=== PATIENT | male | born 1950 | race Caucasian/White ===

== ENCOUNTER 2022-11-08 15:39 | Emergency (ER) | payer OTHER, BC ==
--- OUTSIDE RECORDS SUMMARY | 2022-11-08 15:43 | XMS REPORT | Continuity of Care Document ---
:1950 Author Organization [facility] t Address [address] [place] [address] [place] [id number] Care Team Providers Name Role Phone [facility] Primary Care Physician JORGE YOU Attending Clinician Unavailable [email or web address] Attending Clinician Unavailable Sallie Hickman APRN Attending Clinician Braulio Borrego Attending Clinician [phone] Doctor Unassigned, [place] Attending Clinician Unavailable Jorge You MD Attending Clinician Only, Ad[facility] Test Attending Clinician Unavailable Pob, [facility] Main Attending Clinician Unavailable Osmani Willis DO Attending Clinician Agustin Webb MD Attending Clinician JORGE YOU Admitting Clinician Unavailable [email or web address] Admitting Clinician Unavailable Jorge You MD Admitting Clinician Payers Payer Name Policy Type Policy Number Effective Date Expiration Date S edel MEDICARE PART A [id number] 2014 AND B 00:00:00 MEDICARE PART A [id number] 2014 \T\ B 00:00:00 [place] [id number] 2014 (MEDICARE) 00:00:00 [place] [id number] [place] [id number] 2014 [employer] 00:00:00 Problems Condition Condition Condition Status Onset Resolution Last Treating Co mments Source Name Details Category Date Date Treatment Clinician Date Anxiety Anxiety Problem Active [facility] 3-27 Medical 00:00: 00 Unsteady Unsteady Problem Active 2021-05 [facility] when When 2-29 Medical walking Walking 00:00: 00 Erectile Erectile Problem Active 2021-05 [facility] dysfunctio Dysfunctio 1-22 Me dical n n 00:00: 00 Thrombocyt Thrombocyt Problem Active [facility] openic openic 1-17 Medical disorder Disorder 00:00: 00 Chronic Chronic Problem Active [facility] alcoholism Alcoholism 1-17 Me dical in in 00:00: remission Remission 00 Seborrheic Seborrheic Problem Active [facility] dermatitis Dermatitis 1-16 Me dical of scalp of Scalp 00:00: 00 Memory Memory Problem Active [facility] impairment Impairment 1-16 Me dical 00:00: 00 Dementia Dementia Problem Active [facility] 1-14 Medical 00:00: 00 Attention Attention Disease Active 2019-05 and and 06-10 Health concentrat concentrat 00:00: ion ion 00 deficit deficit Decreased Decreased Disease Active 2019-05 [facility] platelet platelet 06-10 Health count count 00:00: 00 Essential Essential Disease Active 2019-05 [facility] (primary) (primary) 06-10 Heal th hypertensi hypertensi 00:00: on on 00 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 [facility] T ysteinemia ysteinemia 19 He alth 00:00: 00 Increased Increased Disease Active 2019-05 [facility] CPK level CPK level 19 Heal th 00:00: 00 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' 19 He alth s disease s disease 00:00: without without 00 behavioral behavioral disturbanc disturbanc e e Low Low Disease Active 2019-05 [facility] vitamin vitamin 06-10 Health B12 level B12 level 00:00: 00 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 [facility] vessel vessel -19 Health disease, disease, 00:00: cerebrovas cerebrovas 00 cular cular Atrial Atrial Disease Active [facility] fibrillati fibrillati 9 He alth on on 00:00: 00 Essential Essential Problem Active 2019-1 [facility] hypertensi Hypertensi 2-18 Me dical on on 00:00: 00 Paroxysmal Paroxysmal Problem Active 2018- P [facility] atrial Atrial 2-18 Medical fibrillati Fibrillati 00:00: on on 00 Male Male Problem Active [facility] hypogonadi Hypogonadi 6-14 Me dical sm sm 00:00: 00 Allergies, Adverse Reactions, Alerts Allergy Allergy Status Severity Reaction(s) Onset Inactive Treating Comm ents Source Name Type Date Date Clinician NO KNOWN Drug Active [facility] ALLERGIE Class [facility] Social History Social Habit Start Date Stop Date Quantity Comments Source Exposure to 2022-05-29 2022-06-08 Not sure [facility] SARS-CoV-2 00:00:00 13:07:00 (event) Tobacco use and 2022-06-08 2022-06-08 Smokeless tobacco [facility] exposure 00:00:00 00:00:00 non-user Alcohol intake 2017-07-27 2017-07-[address] [facility] 00:[facility]:00 00:00:00 non-drinker of Medical Ce nter alcohol (finding) Sex Assigned At [address] [facility] Smoking Status Start Date Stop Date Source Tobacco smoking consumption unknown [facility] Never smoked tobacco [facility] Medications Ordered Filled Start Stop Current Ordering Indication Dosage Frequency Signature Comments Components Source Medication Medication Date Date Medication? Clinician (SIG) Name Name donepezil 4- No [id number] 10mg Take 1 [facility] T (Aricept) 06-08 tablet (10 Hea lth 10 MG 00:00: 05:59 mg total) tablet 00 :00 by mouth 1 (one) time each day in the morning. escitalopra 4- No [id number] 10mg QD Take 1 [facility] m (Lexapro) 06-08 tablet (10 H ealth 10 MG 00:00: 05:59 mg total) tablet 00 :00 by mouth 1 (one) time each day. Take 1 tablet, 10 mg, daily after taking 5 mg tablets for 14 days. donepezil Yes 10mg QD Take 10 mg [facility] (Aricept) 05-29 by mouth 1 Heal th 10 MG 00:00: (one) time tablet 00 each day. memantine 2022-0 Yes 5mg QD Take 5 mg [facility] (Namenda) 5 05-29 by mouth 1 He alth MG tablet 00:00: (one) time 00 each day. memantine 2022-0 Yes 5mg QD Take 5 mg [facility] (Namenda) 5 05-29 by mouth 1 He alth MG tablet 00:00: (one) time 00 each day. donepezil 2022-2022- No 10mg QD Take 10 mg U T (Aricept) 05-29 by mouth 1 Hea lth 10 MG 00:00: 00:00 (one) time tablet 00 :00 each day. escitalopra 2021-0 Yes [id number] 5mg QD Take 1 [facility] m (Lexapro) 4-11 tablet (5 Hea lth 5 MG tablet 00:00: mg total) 00 by mouth 1 (one) time each day for 14 days. Take 1 tablet for 14 days then increase to 10 mg tablet once daily escitalopra 2021-0 Yes [id number] 5mg QD Take 1 [facility] m (Lexapro) 4-11 tablet (5 Hea lth 5 MG tablet 00:00: mg total) 00 by mouth 1 (one) time each day for 14 days. Take 1 tablet for 14 days then increase to 10 mg tablet once daily escitalopra 2021-0 2022- No [id number] 10mg QD Take 1 [facility] m (Lexapro) 08-31-12 tablet (10 H ealth 10 MG 00:00: 04:59 mg total) tablet 00 :00 by mouth 1 (one) time each day. Take 1 tablet, 10 mg, daily after taking 5 mg tablets for 14 days. escitalopra 2021-0 2022- No [id number] 10mg QD Take 1 [facility] m (Lexapro) 08-31 tablet (10 H ealth 10 MG 00:00: 00:00 mg total) tablet 00 :00 by mouth 1 (one) time each day. Take 1 tablet, 10 mg, daily after taking 5 mg tablets for 14 days. water for Yes PRN, Univers irrigation 08-06 Starting ity o f irrigation 15:41: Wed [place] solution 00 08/06/20 at [facility] 1041, Branch Until Discontinu ed, Routine, Intra-op sodium 0 Yes PRN, Univers chloride 17 Starting ity of (NS) 15:41: Tue [place] injection 00 08/06/20 at [facility] 1041, Branch Until Discontinu ed, Routine, Intra-op neomycin-po 0 Yes PRN, Univer s lymyxin-dex 17 Starting ity of amethasone 15:40: Tue (MAXITROL) 08/06/20 at [facility] ical 3.5 1040, Branch mg/g-10,000 Until unit/g-0.1 Discontinu % ed, ophthalmic Routine, ointment Intra-op Hyaluronida Yes PRN, Univer s se, Human 08-06 Starting ity of Recomb. 15:40: Tue (HYLENEX) 08/06/20 at [facility] 1040, Branch Until Discontinu ed, Routine, Intra-op gentamicin Yes PRN, Univers injection 17 Starting ity of 15:40: Tue [place] 00 08/06/20 at [facility] 1040, Branch Until Discontinu ed, NGOZI, Intra-op eye block Yes PRN, Univers syringe 11 17 Starting ity o f mL 15:40: Tue [place] 08/06/20 at [facility] 1040, Branch Until Discontinu ed, Intra-op EPINEPHrine Yes PRN, Univer s 1:1,000 (1 17 Starting ity o f mg/mL) 15:39: Tue (ADRENALIN) 00 08/06/20 at [place] [facility] injection 1039, Branch Until Discontinu ed, Routine, Intra-op DUOVISC 0 Yes PRN, Univers (DUOVISC 17 Starting ity of VISCO 15:39: Tue ELASTIC) 3 08/06/20 at [facility] ical %-4 %(0.5 1039, Branch mL) 1 % Until (0.55 mL) Discontinu intraocular ed, injection Routine, Intra-op dexamethaso Yes PRN, Univer s ne 3-17 Starting ity of (DECADRON 15:38: Tue PHOSPHATE) 00 08/06/20 at [facility] ical injection 1038, Branch Until Discontinu ed, Routine, Intra-op ceFAZolin Yes PRN, Univers (ANCEF) 317 Starting ity of injection 15:38: Wed [place] 00 08/06/20 at [facility] 1038, [place] Until Discontinu ed, NGOZI, Intra-op carbachoL Yes PRN, Univers (MIOSTAT) 08-06 Starting ity of 0.01 % 15:38: Wed [place] intraocular 00 08/06/20 at [place] dical injection 1038, [place] Until Discontinu ed, Routine, Intra-op balanced Yes PRN, Univers salt irrig 08-06 Starting ity o f soln comb1 15:32: Tue [place] (BSS PLUS) 00 08/06/20 at [facility] ophthalmic 1032, [place] solution Until 500 mL bag Discontinu ed, Routine, Intra-op mydriatic 2020- No .5mL 0.5 mL, Univ ers #5 08-06 Right Eye, ity of ophthalmic 14:15: 14:23 ONCE, 1 [place] as solution 00 :00 dose, Tue Medica l 0.5 mL 08/06/20 at [place] syringe 0915, Routine, DSU Pre-op lactated 2020- No 1000mL at 42 Univ rs ringers IV 08-0617 mL/hr, ity of infusion 14:15: 14:21 1,000 mL, [place] as 1,000 mL 00 :00 IV Medical Infusion, [place] ONCE, 1 dose, 08/06/20 at 0915, Routine, DSU Pre-op cefazolin 1 cefazolin 1 No cefazolin [facility] gram gram 17 1 gram Medical intravenous intravenous 00:00: intravenou piggyback piggyback 00 s piggyback dexamethaso dexamethaso No dexamethas [facility] ne sodium ne sodium 17 one sodium Medical phosphate 4 phosphate 4 00:00: phosphate mg/mL mg/mL 00 4 mg/mL injection injection injection solution solution solution epinephrine epinephrine No epinephrin [facility] 1 mg/mL 1 mg/mL 08-06 e 1 mg/mL Medi frantz injection injection 00:00: injection kit kit 00 kit gentamicin gentamicin No gentamicin [facility] 40 mg/mL 40 mg/mL 3-17 40 mg/mL Med ical injection injection 00:00: injection solution solution 00 solution hyaluronida hyaluronida No hyaluronid [facility] se, human se, human 3-17 ase, human Medical recombinant recombinant 00:00: recombinan 150 unit/mL 150 unit/mL 00 t 150 injection injection unit/mL solution solution injection solution neomycin neomycin No neomycin [facility] 3.5 3.5 3-17 3.5 Medical mg/g-polymy mg/g-polymy 00:00: mg/g-polym xochitl B xochitl B 00 yxin B 10,000 10,000 10,000 unit/g-dexa unit/g-dexa unit/g-dex meth 0.1 % meth 0.1 % ameth 0.1 eye oint eye oint % eye oint water for water for No water for [facility] irrigation, irrigation, 3-17 irrigation Medical sterile sterile 00:00: , sterile solution solution 00 solution carbachol carbachol No carbachol [facility] 0.01 % 0.01 % 17 0.01 % Medical intraocular intraocular 00:00: intraocula solution solution 00 r solution DIGOXIN 125 2020-0 Yes [id number] TAKE ONE Univers mcg (0.125 4-15 TABLET BY ity of mg) tablet 00:00: [facility] DAILY Medical Branch DIGOXIN 125 2020-0 Yes [id number] TAKE ONE Univers mcg (0.125 4-15 TABLET BY ity of mg) tablet 00:00: [facility] DAILY Medical Branch DIGOXIN 125 2020-0 Yes [id number] TAKE ONE Univers mcg (0.125 4-15 TABLET BY ity of mg) tablet 00:00: [facility] DAILY Medical Branch DIGOXIN 125 2020-0 Yes [id number] TAKE ONE Univers mcg (0.125 4-15 TABLET BY ity of mg) tablet 00:00: [facility] DAILY Medical Branch DIGOXIN 125 2020-0 Yes [id number] TAKE ONE Univers mcg (0.125 4-15 TABLET BY ity of mg) tablet 00:00: [facility] DAILY Medical Branch DIGOXIN 125 2020-0 Yes [id number] TAKE ONE Univers mcg (0.125 4-15 TABLET BY ity of mg) tablet 00:00: [facility] DAILY Medical Branch DIGOXIN 125 2020-0 Yes [id number] TAKE ONE Univers mcg (0.125 4-15 TABLET BY ity of mg) tablet 00:00: [facility] DAILY Medical Branch DIGOXIN 125 2020-0 Yes [id number] TAKE ONE Univers mcg (0.125 4-15 TABLET BY ity of mg) tablet 00:00: [facility] DAILY Medical Branch DIGOXIN 125 2020-0 Yes [id number] TAKE ONE Univers mcg (0.125 4-15 TABLET BY ity of mg) tablet 00:00: [facility] DAILY Medical Branch DIGOXIN 125 2020-0 Yes [id number] TAKE ONE Univers mcg (0.125 4-15 TABLET BY ity of mg) tablet 00:00: [facility] DAILY Medical Branch TRIAMTERENE 2020-0 Yes TAKE ONE Un franko -HYDROCHLOR 3-30 CAPSULE BY it y of OTHIAZIDE 00:00: [facility] 37.5-25 mg 00 DAILY Medical per capsule Branch QUINAPRIL 2020-0 Yes TAKE ONE Univ ers 20 mg 3-30 TABLET BY ity of tablet 00:00: [facility] DAILY Medical Branch TRIAMTERENE 2020-0 Yes TAKE ONE Un franko -HYDROCHLOR 3-30 CAPSULE BY it y of OTHIAZIDE 00:00: [facility] 37.5-25 mg 00 DAILY Medical per capsule Branch QUINAPRIL 2020-0 Yes TAKE ONE Univ ers 20 mg 3-30 TABLET BY ity of tablet 00:00: [facility] DAILY Medical Branch TRIAMTERENE 2020-0 Yes TAKE ONE Un franko -HYDROCHLOR 3-30 CAPSULE BY it y of OTHIAZIDE 00:00: [facility] 37.5-25 mg 00 DAILY Medical per capsule Branch QUINAPRIL 2020-0 Yes TAKE ONE Univ ers 20 mg 3-30 TABLET BY ity of tablet 00:00: [facility] DAILY Medical Branch TRIAMTERENE 2020-0 Yes TAKE ONE Un franko -HYDROCHLOR 3-30 CAPSULE BY it y of OTHIAZIDE 00:00: [facility] 37.5-25 mg 00 DAILY Medical per capsule Branch QUINAPRIL 2020-0 Yes TAKE ONE Univ ers 20 mg 3-30 TABLET BY ity of tablet 00:00: [facility] DAILY Medical Branch TRIAMTERENE 2020-0 Yes TAKE ONE Un franko -HYDROCHLOR 3-30 CAPSULE BY it y of OTHIAZIDE 00:00: [facility] 37.5-25 mg 00 DAILY Medical per capsule Branch QUINAPRIL 2020-0 Yes TAKE ONE Univ ers 20 mg 3-30 TABLET BY ity of tablet 00:00: [facility] 00 DAILY Medical Branch TRIAMTERENE 2020-0 Yes TAKE ONE Un franko -HYDROCHLOR 3-30 CAPSULE BY it y of OTHIAZIDE 00:00: MOUTH [place] 37.5-25 mg 00 DAILY Medical per capsule Branch QUINAPRIL 2020-0 Yes TAKE ONE Univ ers 20 mg 3-30 TABLET BY ity of tablet 00:00: MOUTH 00 DAILY Medical Branch TRIAMTERENE 2020-0 Yes TAKE ONE Un franko -HYDROCHLOR 3-30 CAPSULE BY it y of OTHIAZIDE 00:00: MOUTH [place] 37.5-25 mg 00 DAILY Medical per capsule Branch QUINAPRIL 2020-0 Yes TAKE ONE Univ ers 20 mg 3-30 TABLET BY ity of tablet 00:00: MOUTH [place] DAILY Medical Branch TRIAMTERENE 2020-0 Yes TAKE ONE Un franko -HYDROCHLOR 3-30 CAPSULE BY it y of OTHIAZIDE 00:00: MOUTH [place] 37.5-25 mg 00 DAILY Medical per capsule Branch QUINAPRIL 2020-0 Yes TAKE ONE Univ ers 20 mg 3-30 TABLET BY ity of tablet 00:00: MOUTH DAILY Medical Branch TRIAMTERENE 2020-0 Yes TAKE ONE Un franko -HYDROCHLOR 3-30 CAPSULE BY it y of OTHIAZIDE 00:00: MOUTH [place] 37.5-25 mg 00 DAILY Medical per capsule Branch QUINAPRIL 2020-0 Yes TAKE ONE Univ ers 20 mg 3-30 TABLET BY ity of tablet 00:00: MOUTH [place] DAILY Medical Branch TRIAMTERENE 2020-0 Yes TAKE ONE Un franko -HYDROCHLOR 3-30 CAPSULE BY it y of OTHIAZIDE 00:00: MOUTH [place] 37.5-25 mg 00 DAILY Medical per capsule Branch QUINAPRIL 2020-0 Yes TAKE ONE Univ ers 20 mg 3-30 TABLET BY ity of tablet 00:00: MOUTH 00 DAILY Medical Branch TRIAMTERENE 2020-0 Yes TAKE ONE Un [facility]o -HYDROCHLOR 3-30 CAPSULE BY it y of OTHIAZIDE 00:00: MOUTH [place] 37.5-25 mg 00 DAILY Medical per capsule Branch QUINAPRIL 2020-0 Yes TAKE ONE Univ ers 20 mg 3-30 TABLET BY ity of tablet 00:00: MOUTH DAILY Medical Branch DIGOXIN 125 2018- Yes [id number] TAKE ONE Univers mcg tablet 0-03 TABLET BY ity of 00:00: MOUTH DAILY Medical Branch QUINAPRIL 2018-05 Yes TAKE ONE Univ ers 20 mg 0-03 TABLET BY ity of tablet 00:00: MOUTH [place] 00 DAILY Medical Branch TRIAMTERENE 2018-05 Yes TAKE ONE Un franko -HYDROCHLOR 0-03 CAPSULE BY it y of OTHIAZIDE 00:00: MOUTH [place] 37.5-25 mg 00 DAILY Medical per capsule Branch DIGOXIN 125 2018-05 Yes [id number] TAKE ONE Univers mcg tablet 0-03 TABLET BY ity of 00:00: MOUTH [place] 00 DAILY Medical Branch QUINAPRIL 2018-05 Yes TAKE ONE Univ ers 20 mg 0-03 TABLET BY ity of tablet 00:00: MOUTH [place] 00 DAILY Medical Branch TRIAMTERENE 2018-05 Yes TAKE ONE Un franko -HYDROCHLOR 0-03 CAPSULE BY it y of OTHIAZIDE 00:00: MOUTH [place] 37.5-25 mg 00 DAILY Medical per capsule Branch DIGOXIN 125 2018-05 Yes [id number] TAKE ONE Univers mcg tablet 0-03 TABLET BY ity of 00:00: MOUTH 00 DAILY Medical Branch QUINAPRIL 2018-05 Yes TAKE ONE Univ ers 20 mg 0-03 TABLET BY ity of tablet 00:00: MOUTH [place] 00 DAILY Medical Branch TRIAMTERENE 2018-05 Yes TAKE ONE Un franko -HYDROCHLOR 0-03 CAPSULE BY it y of OTHIAZIDE 00:00: MOUTH [place] 37.5-25 mg 00 DAILY Medical per capsule Branch DIGOXIN 125 2018-05 Yes [id number] TAKE ONE Univers mcg tablet 0-03 TABLET BY ity of 00:00: MOUTH [place] 00 DAILY Medical Branch QUINAPRIL 2018-05 Yes TAKE ONE Univ ers 20 mg 0-03 TABLET BY ity of tablet 00:00: MOUTH [place] 00 DAILY Medical Branch TRIAMTERENE 2018-05 Yes TAKE ONE Un franko -HYDROCHLOR 0-03 CAPSULE BY it y of OTHIAZIDE 00:00: MOUTH [place] 37.5-25 mg 00 DAILY Medical per capsule Branch DIGOXIN 125 2018-05 Yes [id number] TAKE ONE Univers mcg tablet 0-03 TABLET BY ity of 00:00: MOUTH [place] 00 DAILY Medical Branch DIGOXIN 125 2018-05 2020- No [id number] TAKE ONE Univers mcg tablet 0-03 04-15 TABLET BY ity of 00:00: 00:00 MOUTH [place] 00 :00 DAILY Medical Branch QUINAPRIL 2019 2020- No TAKE ONE Uni vers 20 mg 0-03 03-30 TABLET BY ity of tablet 00:00: 00:00 MOUTH [place] 00 :00 DAILY Medical Branch TRIAMTERENE 2018- 2020- No TAKE ONE U nivers -HYDROCHLOR 0-03 03-30 CAPSULE BY i ty of OTHIAZIDE 00:00: 00:00 MOUTH [place] 37.5-25 mg 00 :00 DAILY Medical per capsule Branch diflupredna Yes [facility] (DUREZOL) 11:33: Medical 0.05 % Drop 00 [place] digoxin Yes 125ug QD Take [facility] (LANOXIN[facility] 3-07 mcg by [facility] 0.125 MG 11:33: mouth Medical tablet 00 daily. [place] doxycycline Yes 100mg Q.5D Take [address] (DORYX) 100 3-07 mg by [facility] MG EC 11:33: mouth 2 Medical tablet 00 (two) Center times daily. bromfenac Yes Apply [facility] (PROLENSA[facility] 3-07 eye(s). [facility] 0.07 % Drop 11:33: Medica l 00 [place] quinapril Yes 20mg QD Take [address] (ACCUPRIL) 3-07 by mouth [facility] 20 MG 11:33: nightly. Medical tablet 00 [place] quinapril Yes 20mg QD Take [address] (ACCUPRIL) 3-07 by mouth [facility] 20 MG 11:33: nightly. Medical tablet 00 [place] rivaroxaban Yes Take by [facility] (XARELTO) 3-07 mouth [facility] 20 mg Tab 11:33: daily with Me dical tablet 00 dinner. [place] polymyxin B Yes 1[drp] [address] [facility] sulf-trimet 3-07 [facility] hoprim 11:33: Medical 10,000 00 [place] unit- 1 mg/mL Drop triamterene Yes 1{capsu QD Take [address] -hydroCHLOR 3-07 le} capsule by [facility] felipe Othiazide 11:33: mouth Medical (DYAZIDE) 00 every Center 37.5-25 mg morning. per capsule diflupredna Yes Apply to [facility]07 eye(s[facility] (DUREZOL) 11:33: Medical 0.05 % Drop 00 [place] digoxin 2018-0 Yes 125ug QD Take [facility] (LANOXIN) 3-07 mcg by [facility] 0.125 MG 11:33: mouth Medical tablet 00 daily. [place] doxycycline Yes 100mg Q.5D Take [address] (DORYX) 100 3-07 mg by [facility] MG EC 11:33: mouth 2 Medical tablet 00 (two) Center times daily. bromfenac Yes Apply [facility] (PROLENSA) 307 eye(s). [facility] 0.07 % Drop 11:33: Medica l 00 [place] rivaroxaban Yes Take by [facility] (XARELTO) 307 mouth [facility] 20 mg Tab 11:33: daily with Me dical tablet 00 dinner. [place] polymyxin B Yes 1[drp] [address] sulf-trimet 07 [facility] hoprim 11:33: Medical 10,000 00 [place] unit- 1 mg/mL Drop triamterene Yes 1{capsu QD Take [address] -hydroCHLOR 3- le} capsule by [facility] Othiazide 11:33: mouth Medical (DYAZIDE) 00 every Center 37.5-25 mg morning. per capsule XARELTO 20 Yes Univers mg tablet 5-26 ity of 00:00: [address] XARELTO 20 Yes Univers mg tablet 5-26 ity of 00:00: [address] XARELTO 20 Yes Univers mg tablet 5-26 ity of 00:00: [address] XARELTO 20 Yes Univers mg tablet 5-26 ity of 00:00: [address] XARELTO 20 Yes Univers mg tablet 5-26 ity of 00:00: [address] XARELTO 20 Yes Univers mg tablet 5-26 ity of 00:00: [address] XARELTO 20 Yes Univers mg tablet 5-26 ity of 00:00: [address] XARELTO 20 Yes Univers mg tablet 5-26 ity of 00:00: [address] XARELTO 20 Yes Univers mg tablet 5-26 ity of 00:00: [address] XARELTO 20 Yes Univers mg tablet 5-26 ity of 00:00: [place] [facility] Branch XARELTO 20 Yes Univers mg tablet 10-15 ity of 00:00: [place] [facility] XARELTO 20 Yes Univers mg tablet 10-15 ity of 00:00: [place] [facility] XARELTO 20 Yes Univers mg tablet 10-15 ity of 00:00: [place] [facility] XARELTO 20 Yes Univers mg tablet 10-15 ity of 00:00: [place] [facility] XARELTO 20 Yes Univers mg tablet 10-15 ity of 00:00: [place] [facility] digoxin 125 digoxin 125 No digoxin [facility] mcg (0.125 mcg (0.125 125 mcg Medical mg) tablet mg) tablet (0.125 mg) TAKE ONE TAKE ONE tablet (1) (1) TAKE ONE TABLET(S) TABLET(S) (1) BY MOUTH BY MOUTH TABLET(S) ONCE A DAY. ONCE A DAY. BY MOUTH ONCE A DAY. donepezil donepezil No donepezil [facility] 10 mg 10 mg 10 mg Medical tablet TAKE tablet TAKE tablet ONE (1) ONE (1) TAKE ONE TABLET(S) TABLET(S) (1) BY MOUTH BY MOUTH TABLET(S) TWICE A TWICE A BY MOUTH DAY. DAY. TWICE A DAY. hydrocortis hydrocortis No hydrocorti [facility] one 2.5 % one 2.5 % sone 2.5 % Medical lotion lotion lotion APPLY TWICE APPLY TWICE APPLY DAILY FOR DAILY FOR TWICE TWO WEEKS TWO WEEKS DAILY FOR ON TWO ON TWO TWO WEEKS WEEKS OFF WEEKS OFF ON TWO AND REPEAT. AND REPEAT. WEEKS OFF AND REPEAT. hydrocortis hydrocortis No hydrocorti [facility] one 2.5 % one 2.5 % sone 2.5 % Medical topical topical topical ointment ointment ointment APPLY TO APPLY TO APPLY TO AFFECTED AFFECTED AFFECTED AREA ON THE AREA ON THE AREA ON FACE TWICE FACE TWICE THE FACE DAILY FOR 2 DAILY FOR 2 TWICE WEEKS THEN WEEKS THEN DAILY FOR DO NOT DO NOT 2 WEEKS APPLY FOR 2 APPLY FOR 2 THEN DO WEEKS. USE WEEKS. USE NOT APPLY NEEDED NEEDED FOR 2 FOR FLARES. FOR FLARES. WEEKS. USE NEEDED FOR FLARES. Lexapro 5 Lexapro 5 No 1 Q1D Lexapro 5 [facility] mg tablet mg tablet mg tablet Medical Take 1 Take 1 Take 1 tablet tablet tablet every day every day every day by oral by oral by oral route for route for route for 90 days. 90 days. 90 days. memantine memantine No memantine [facility] 10 mg 10 mg 10 mg Medical tablet TAKE tablet TAKE tablet ONE (1) ONE (1) TAKE ONE TABLET(S) TABLET(S) (1) BY MOUTH BY MOUTH TABLET(S) TWICE A DAY TWICE A DAY BY MOUTH (MORNING (MORNING TWICE A AND AND DAY EVENING). EVENING). (MORNING DO NOT DO NOT AND START UNTIL START UNTIL EVENING). FINISHING FINISHING DO NOT 5MG 5MG START TABLETS. TABLETS. UNTIL FINISHING 5MG TABLETS. mupirocin 2 mupirocin 2 No mupirocin [facility] % topical % topical 2 % Medic al ointment ointment topical APPLY TO APPLY TO ointment SURGICAL SURGICAL APPLY TO SITE TWICE SITE TWICE SURGICAL A DAY FOR 2 A DAY FOR 2 SITE TWICE WEEKS. WEEKS. A DAY FOR 2 WEEKS. prednisolon prednisolon No prednisolo [facility] e acetate 1 e acetate 1 ne acetate Medical % eye % eye 1 % eye drops,suspe drops,suspe drops,susp nsion nsion ension INSTILL ONE INSTILL ONE INSTILL (1) DROP (1) DROP ONE (1) INTO LEFT INTO LEFT DROP INTO EYE TWICE EYE TWICE LEFT EYE DAILY. DAILY. TWICE DAILY. sildenafil sildenafil No sildenafil [facility] 25 mg 25 mg 25 mg Medical tablet TAKE tablet TAKE tablet ONE (1) ONE (1) TAKE ONE TABLET(S) TABLET(S) (1) BY MOUTH BY MOUTH TABLET(S) DAILY. DAILY. BY MOUTH DAILY. triamterene triamterene No triamteren [facility] 37.5 37.5 e 37.5 Medical mg-hydrochl mg-hydrochl mg-hydroch orothiazide orothiazide lorothiazi 25 mg 25 mg de 25 mg tablet TAKE tablet TAKE tablet ONE (1) ONE (1) TAKE ONE TABLET(S) TABLET(S) (1) BY MOUTH BY MOUTH TABLET(S) ONCE A DAY. ONCE A DAY. BY MOUTH ONCE A DAY. Xarelto 20 Xarelto 20 No Xarelto 20 [facility] mg tablet mg tablet mg tablet Medical TAKE ONE TAKE ONE TAKE ONE (1) (1) (1) TABLET(S) TABLET(S) TABLET(S) BY MOUTH BY MOUTH BY MOUTH DAILY. DAILY. DAILY. digoxin 125 digoxin 125 No digoxin [facility] mcg (0.125 mcg (0.125 125 mcg Medical mg) tablet mg) tablet (0.125 mg) Take 1 Take 1 tablet tablet by tablet by Take 1 oral route oral route tablet by for 90 for 90 oral route days. days. for 90 days. donepezil donepezil No donepezil [facility] 10 mg 10 mg 10 mg Medical tablet TAKE tablet TAKE tablet TWO (2) TWO (2) TAKE TWO TABLET(S) TABLET(S) (2) BY MOUTH BY MOUTH TABLET(S) EVERY EVERY BY MOUTH MORNING. MORNING. EVERY MORNING. hydrocortis hydrocortis No hydrocorti [facility] one 2.5 % one 2.5 % sone 2.5 % Medical lotion lotion lotion APPLY TWICE APPLY TWICE APPLY DAILY FOR DAILY FOR TWICE TWO WEEKS TWO WEEKS DAILY FOR ON TWO ON TWO TWO WEEKS WEEKS OFF WEEKS OFF ON TWO AND REPEAT. AND REPEAT. WEEKS OFF AND REPEAT. triamterene triamterene No triamteren [facility] 37.5 37.5 e 37.5 Medical mg-hydrochl mg-hydrochl mg-hydroch orothiazide orothiazide lorothiazi 25 mg 25 mg de 25 mg capsule capsule capsule Take 1 Take 1 Take 1 capsule by capsule by capsule by oral route oral route oral route for 90 for 90 for 90 days. days. days. Xarelto 20 Xarelto 20 No Xarelto 20 [facility] mg tablet mg tablet mg tablet Medical TAKE ONE TAKE ONE TAKE ONE TABLET BY TABLET BY TABLET BY MOUTH DAILY MOUTH DAILY MOUTH DAILY digoxin 125 digoxin 125 No digoxin [facility] mcg (0.125 mcg (0.125 125 mcg Medical mg) tablet mg) tablet (0.125 mg) Take 1 Take 1 tablet tablet by tablet by Take 1 oral route oral route tablet by for 90 for 90 oral route days. days. for 90 days. donepezil donepezil No donepezil [facility] 10 mg 10 mg 10 mg Medical tablet TAKE tablet TAKE tablet TWO (2) TWO (2) TAKE TWO TABLET(S) TABLET(S) (2) BY MOUTH BY MOUTH TABLET(S) EVERY EVERY BY MOUTH MORNING. MORNING. EVERY MORNING. hydrocortis hydrocortis No hydrocorti [facility] one 2.5 % one 2.5 % sone 2.5 % Medical lotion lotion lotion APPLY TWICE APPLY TWICE APPLY DAILY FOR DAILY FOR TWICE TWO WEEKS TWO WEEKS DAILY FOR ON TWO ON TWO TWO WEEKS WEEKS OFF WEEKS OFF ON TWO AND REPEAT. AND REPEAT. WEEKS OFF AND REPEAT. triamterene triamterene No triamteren [facility] 37.5 37.5 e 37.5 Medical mg-hydrochl mg-hydrochl mg-hydroch orothiazide orothiazide lorothiazi 25 mg 25 mg de 25 mg capsule capsule capsule Take 1 Take 1 Take 1 capsule by capsule by capsule by oral route oral route oral route for 90 for 90 for 90 days. days. days. Xarelto 20 Xarelto 20 No Xarelto 20 [facility] mg tablet mg tablet mg tablet Medical Immunizations Ordered Immunization Filled Immunization Date Status Commen ts Source Name Name influenza, influenza, 2020-01-22 Completed [facility] injectable, injectable, 00:00:00 Medical quadrivalent quadrivalent influenza, influenza, 2020-01-22 Completed [facility] injectable, injectable, 00:00:00 Medical quadrivalent quadrivalent influenza, influenza, 2020-01-22 Completed [facility] injectable, injectable, 00:00:00 Medical quadrivalent quadrivalent influenza, influenza, 2019-02-20 Completed [facility] injectable, injectable, 00:00:00 Medical quadrivalent quadrivalent influenza, influenza, 2019-02-20 Completed [facility] injectable, injectable, 00:00:00 Medical quadrivalent quadrivalent influenza, influenza, 2019-02-20 Completed [facility] injectable, injectable, 00:00:00 Medical quadrivalent quadrivalent pneumococcal pneumococcal 2018-11-20 Completed [facility] polysaccharide PPV23 polysaccharide PPV23 00:00:00 Medical pneumococcal pneumococcal 2018-11-20 Completed [facility] polysaccharide PPV23 polysaccharide PPV23 00:00:00 Medical pneumococcal pneumococcal 2018-11-20 Completed [facility] polysaccharide PPV23 polysaccharide PPV23 00:00:00 Medical pneumococcal pneumococcal 2018-05-23 Completed [facility] conjugate PCV 13 conjugate PCV 13 00:00:00 Me dical pneumococcal pneumococcal 2018-05-23 Completed [facility] conjugate PCV 13 conjugate PCV 13 00:00:00 Me dical pneumococcal pneumococcal 2018-05-23 Completed [facility] conjugate PCV 13 conjugate PCV 13 00:00:00 Me dical Vital Signs Vital Name Observation Time Observation Value Comments Source BP Diastolic 2022-08-16 00:00:00 84 mm[Hg] [facility] BP Systolic 2022-08-16 00:00:00 127 mm[Hg] [facility] Body height 2022-06-08 22:46:00 [facility]6 [facility] weight 2022-06-08 22:46:00 88[facility]179 [facility] BMI 2022-06-08 22:46:00 33.37 kg/m2 [facility] BP Diastolic 2021-08-12 00:00:00 79 mm[Hg] [facility] BP Systolic 2021-08-12 00:00:00 137 mm[Hg] [facility] Body Weight 2021-08-12 00:00:00 3040 [oz_av] [facility] Systolic blood 2020-08-06 16:00:00 119 mm[Hg] [facility] Diastolic blood 2020-08-06 16:00:00 72 mm[Hg] [facility] 2020-08-06 16:00:00 72 /min [facility] Respiratory rate 2020-08-06 16:00:00 12 /min [facility] Oxygen saturation in 2020-08-06 16:00:00 97 /min [facility] Arterial blood by [facility] Pulse oximetry [place] Body temperature 2020-08-06 15:48:00 36.44 [facility] Body height 2020-08-06 00:45:00 170.2 cm [facility] Body weight 2020-08-06 00:45:00 74.844 kg [facility] BMI 2020-08-06 00:45:00 25.84 kg/m2 [facility] Procedures Procedure Date / Time Performing Source Performed Clinician EXTERNAL PROVIDER RECORDS 2021-04-08 Doctor Unassigned, [facility] 06:01:00 [facility] [place] PHACOEMULSIFICATION OF 2020-08-06 Jorge You [facility] CATARACT WITH INTRAOCULAR 15:06:00 [facility] LENS IMPLANT ASSIGNMENT OF BENEFITS 2020-08-05 Doctor Unassigned, [facility] 13:50:39 [facility] PHYSICIAN ORDERS 2020-07-28 Doctor Unassigned, [place] [facility] [place] 06:01:00 [facility] EXTERNAL PROVIDER RECORDS 2019-06-20 Doctor Unassigned, [facility] 06:01:00 [facility] REFERRAL- REQUEST/RESPONSE 2019-03-19 Doctor Unassigned, [facility] 05:01:00 [facility] Plan of Care Planned Activity Planned Date Details Comments Source Diagnostic Test 2022-08-16 CMP, serum or plasma [facility] Pending 00:00:00 [code = CMP, serum or plasma] Diagnostic Test 2022-08-16 CBC w/ auto diff [code [facility] Pending 00:00:00 = CBC w/ auto diff] Diagnostic Test 2022-08-16 HbA1c (hemoglobin [facility] Pending 00:00:00 A1c), blood [code = HbA1c (hemoglobin A1c), blood] Diagnostic Test 2022-08-16 lipid panel, serum [facility] Pending 00:00:00 [code = lipid panel, serum] Diagnostic Test 2022-08-16 C-reactive protein, [facility] Pending 00:00:00 quantitative [code = C-reactive protein, quantitative] Diagnostic Test 2022-08-16 urinalysis, complete [facility] Pending 00:00:00 [code = urinalysis, complete] Diagnostic Test 2022-08-16 TSH, serum or plasma [facility] Pending 00:00:00 [code = TSH, serum or plasma] Diagnostic Test 2022-08-16 PSA, serum or plasma [facility] Pending 00:00:00 [code = PSA, serum or plasma] Diagnostic Test 2022-08-16 vitamin B12 + folate, [facility] Pending 00:00:00 serum or blood [code = vitamin B12 + folate, serum or blood] Future Appointment 2023-08-17 Braulio Borrego, [address] [facility] 00:00:00 [facility]; [address], [place] [address] Instructions [facility] Encounters Start End Encounter Admission Attending Care Care Encounter Source Date/Time Date/Time Type Type Clinicians Facility Department ID 2022-06-09 Outpatient [facility] [id number] [place] 16:18:05 [id number] Health 2022-06-08 Outpatient [facility] [id number] [place] 13:04:52 [id number] [facility] 2022-06-04 Outpatient [facility] [id number] [place] 14:40:01 [id number] [facility] 2022-05-06 Outpatient [facility] [id number] [place] 16:26:20 [id number] [facility] 2022-04-01 Outpatient [facility] [id number] [place] 17:40:36 [id number] [facility] 2021-03-22 Outpatient [place] [facility] JULIET [id number] Univers 03:07:48 JORGE calderon [facility] 2022-09-08 2022-09-08 Outpatient GC_WMMD_Man PRIV PRIV [id number] [facility] 00:00:00 00:00:00 uada_Jasper [id number] Medica l 2022-08-16 2022-08-16 Outpatient GC_WMMD_Man PRIV PRIV [id number] [facility] 00:00:00 00:00:00 William [id number] Medica l 2022-08-16 2022-08-16 [facility] - [facility] [id number] [facility] 00:00:00 00:00:00 Elmo [facility] MD: [id number] GC_WMMD_Woo [facility], [address], [place] [address] , Ph. 2022-08-10 2022-08-10 Outpatient GC_WMMD_Man PRIV PRIV [id number] [facility] 00:00:00 00:00:00 jason_Jasper [id number] Medica l 2022-06-08 2022-06-08 Office [facility] [id number] [place] 13:00:00 15:46:46 Visit Liberty Nguyen.1.13.58 Jones Rizo 9.2.7.2.686 [id number] 2022-01-19 2022-01-19 Outpatient GC_WMMD_Man PRIV PRIV [id number] [facility] 00:00:00 00:00:00 uada_W [id number] Medica l 2021-11-05 2021-11-05 Outpatient GC_WMMD_Man PRIV PRIV [id number] [facility] 01:43:00 01:43:00 uel_W [id number] Medica l 2021-11-03 2021-11-03 Outpatient Elmo [facility] PRIV [id number] 00:00:00 00:00:00 Braulio Ortiz [id number] 2021-11-03 2021-11-03 Braulio Ortiz [facility] - [facility] 2021 [id number] [facility] 00:00:00 00:00:00 Danielle Borreog MD: [id number] GC_WMMD_[facility] [address], [address] [address] , Ph. 2021-09-05 2021-09-05 Outpatient GC_WMMD_Man PRIV PRIV [id number] [facility] 01:32:00 01:32:00 uel_W [id number] Medica l 2021-08-17 2021-08-17 Outpatient GC_WMMD_Man PRIV PRIV [id number] [facility] 09:00:00 09:00:00 uel_W [id number] Medica l 2021-08-12 2021-08-12 Outpatient GC_WMMD_Man PRIV PRIV [id number] [facility] 04:30:00 04:30:00 uel_W [id number] Medica l 2021-08-12 2021-08-12 Braulio Ortiz [facility] - [facility] [id number] [facility] 00:00:00 00:00:00 Danielle Borrego MD: 48[address] GC_WMMD_[facility] [address], [address] [address] , Ph. 2021-08-12 2021-08-12 Outpatient Elmo [facility] PRIV [id number] 00:00:00 00:00:00 Braulio Ortiz [id number] 2021-04-08 2021-04-08 Orders Doctor VALENTINO [id number] Univers 00:00:00 00:00:00 Only Unassigned, [facility] 350.1.13.10 [facility]y [facility] 4.2.7.2.686 Grant as [phone] [facility] 009 Branch 2020-09-05 2020-09-05 Outpatient GC_WMMD_Man PRIV PRIV [id number] [facility] 12:19:00 12:19:00 uel_W [id number] Medica l 2020-08-06 2020-08-06 [facility] [id number] Univers 09:01:00 11:21:00 Encounter Jorge Salgado [id number] [place] [phone] [facility] 071 Branch 2020-08-05 2020-08-05 Laboratory Only, Adc Test [facility] 1.2.840. [id number] Univers 08:53:16 09:08:16 Only Jorge You 350.1.13.1 0 [facility] [id number] [facility] [address] [place] 2020-08-05 2020-08-05 Outpatient R [facility] [id number] Univers 09:00:00 09:00:00 JORGE [facility] 2020-08-05 2020-08-05 Orders Doctor CHELSY [id number] Univers 00:00:00 00:00:00 Only Unassigned, ASC[facility] 350.1.13.10 [facility] 4.2.7.2.686 [place] as [phone] [facility] [address] [place] 2020-07-28 2020-07-28 Bsw Tashia, Adc Lab Main [facility] 1.2.8 [id number] Univers 16:16:22 16:31:22 Visit Jorge You 350.1.13.1 0 [place] [phone] [facility] 353 [facility] 2020-07-28 2020-07-28 Outpatient R [facility] [id number] Univers 15:30:00 15:30:00 JORGE jb [facility] 2020-07-28 2020-07-28 Patient Lazaro [facility] 1.2.840.114 [id number] Univers 00:00:00 00:00:00 Outreach Osmani PRIMARY 350.1.13.10 i ty of [facility] 4.2.7.2.686 [place] RIEDR [id number] Ak dical [address] [place] 2020-07-28 2020-07-28 Orders Doctor CHELSY 1.2.840.114 [id number] Univers 00:00:00 00:00:00 Only Unassigned, ASCENCION 350.1.13.10 [facility] 4.2.7.2.686 [place] as [id number] [address] 2019-09-05 2019-09-05 Refthi Jon [facility] 1.2.840.114 [id number] Univers 00:00:00 00:00:00 [facility] 350.1.13.10 it y of [place] 4.2.7.2.686 [place] as Professio [phone] Ak dical nal [address] [place] Office [facility] 2019-08-18 2019-08-18 Refthi Jon [facility] 1.2.840.114 [id number] Univers 00:00:00 00:00:00 [facility] 350.1.13.10 it y of [place] 4.2.7.2.686 [place] as Professio [phone] Ak dical nal 044 [facility] 2019-07-13 2019-07-13 Telephone Jon ORANDREA [id number] Univers 00:00:00 00:00:00 [facility] 350.1.13.10 it y of [place] 4.2.7.2.686 [place] as Professio [phone] Ak dical nal [address] [place] Office [facility] 2019-06-20 2019-06-20 Orders Doctor CHELSY 1.2.840.114 [id number] Univers 00:00:00 00:00:00 Only Unassigned, ASCENCION 350.1.13.10 [facility] 4.2.7.2.686 [place] as [phone] [address] 2019-06-06 2019-06-06 Telephone Jon [facility] [id number] Univers 00:00:00 00:00:00 [facility] 350.1.13.10 it y of [place] 4.2.7.2.686 [place] as Mark [phone] [facility] [address] Office [address] One 2019-03-19 2019-03-19 Orders Doctor CHELSY [id number] [id number] Univers 00:00:00 00:00:00 Only Unassigned, ASCENCION 350.1.13.10 [facility] 4.2.7.2.686 [place] as [phone] [place] [address] Branch Results This patient has no known results.
--- NOTE | 2022-11-08 17:39 | RAD REPORT ---
EXAM DESCRIPTION: RAD - Knee Left 3 View - 11/08/2022 4:49 pm CLINICAL HISTORY: SMASH INJURY COMPARISON: No comparisons TECHNIQUE: Left knee, 3 views. FINDINGS: No fracture, dislocation or periosteal reaction.Suspected mild effusion seen. Tricompartme ntal psrk-ib-evsuihsa osteoarthritic changes. Soft tissue swelling along the anterior aspect of the k nee. Mineralization along both medial and lateral menisci. Vascular calcifications Clinical concerns for internal derangement or occult bony injury could be further assessed with MR im aging. IMPRESSION: No acute osseus abnormality. Aiui-uy-deafqgcs degenerative changes. Suspected mild joint effusion. Meniscal mineralization may relate to the positional arthropathy such as CPPD.
--- NOTE | 2022-11-08 18:01 | ER ---
Nurse's Notes [facility] Name: Robert Michelle Age: 71 yrs Sex: Male : 1950 Arrival Date: 11/08/2022 Time: 15:39 Bed 12 Private MD: Diagnosis: Left knee effusion, left knee contusion, ground-level fall mechanical Presentation: 11/08 16:09 Chief complaint: Patient states: "I [place] walking around the [place] this morning and mb9 tripped, landing on my left knee. It's throbbing and getting more swollen". Coronavirus screen: Vaccine status: Patient reports receiving the 2nd dose of the covid vaccine. Ebola Screen: No symptoms or risks identified at this time. Initial Sepsis Screen: Does the patient meet any 2 criteria? No. Patient's initial sepsis screen is negative. Does the patient have a suspected source of infection? No. Patient's initial sepsis screen is negative. Risk Assessment: Do you want to hurt yourself or someone else? Patient reports no desire to harm self or others. Onset of symptoms was November 08, 2022. 16:09 Method Of Arrival: Wheelchair mb9 16:09 Acuity: CROW 4 mb9 Triage Assessment: 16:13 General: Appears in no apparent distress. Behavior is cooperative. Pain: Complains of mb9 pain in left knee Pain radiates to left leg. Neuro: Mejia Agitation-Sedation Scale (RASS): 0 - Alert and Calm Level of Consciousness is awake, alert, obeys commands, Oriented to person, place, time, situation, Appropriate for age. Cardiovascular: Patient's skin is warm and dry. Respiratory: Airway is patent Respiratory effort is even, unlabored, Respiratory pattern is regular, symmetrical. Derm: Skin is pink, warm \\T\\ dry. Musculoskeletal: Range of motion: limited in left knee Swelling present in left knee. Historical: - Allergies: 16:12 No Known Allergies; mb9 - Home Meds: 16:12 Xarelto oral [Active]; mb9 - PMHx: 16:12 Atrial fibrillation; Dementia; mb9 - PSHx: 16:12 Appendectomy; mb9 - Immunization history:: Adult Immunizations up to date. - Social history:: Smoking status: Patient denies any tobacco usage or history of. Screenin:14 [facility] ED Fall Risk Assessment (Adult) History of falling in the last 3 months, mb9 including since admission Yes- single mechanical fall (1 pt) Confusion or Disorientation No (0 pts) Intoxicated or Sedated No (0 pts) Impaired Gait Yes (1 pt) Mobility Assist Device Used Yes (1 pt) Altered Elimination No (0 pt) Score/Fall Risk Level 3 or more points = High Risk Oriented to surroundings, Maintained a safe environment, Educated pt \\T\\ family on fall prevention, incl call for assistance when getting out of bed. Abuse screen: Denies threats or abuse. Nutritional screening: No deficits noted. Tuberculosis screening: No symptoms or risk factors identified. Assessment: 16:14 Reassessment: see triage assessment. mb9 17:56 Reassessment: No changes from previously documented assessment. Patient and/or family mb9 updated on plan of care and expected duration. Pain level reassessed. Patient is alert, oriented x 3, equal unlabored respirations, skin warm/dry/pink. Vital Signs: 16:09 BP 137 / 88; Pulse 62; Resp 16; Temp 98.3(O); Pulse Ox 100% on R/A; Weight 79.38 kg; mb9 Height 5 ft. 8 in. ; 17:25 BP 111 / 61; Pulse 54; Resp 16; Pulse Ox 99% on R/A; mb9 18:21 BP 108 / 68; Pulse 58; Resp 15; Pulse Ox 99% on R/A; mb9 16:09 Body Mass Index 26.61 (79.38 kg, 172.72 cm) mb9 ED Course: 15:41 Patient arrived in ED. im 15:42 Gerardo Brar MD is Attending Physician. sp3 15:55 July Meek, MILAD is Primary Nurse. mb9 16:12 Triage completed. mb9 16:12 Arm band placed on. mb9 16:14 Placed in gown. Bed in low position. Call light in reach. Side rails up X 1. Client mb9 placed on continuous cardiac and pulse oximetry monitoring. NIBP monitoring applied. 16:15 No provider procedures requiring assistance completed. mb9 16:50 Knee Left 3 View XRAY: Please get sunrise view In Process Unspecified. EDMS 17:56 Patient did not have IV access during this emergency room visit. mb9 Administered Medications: No medications were administered Medication: 16:15 VIS not applicable for this client. mb9 Outcome: 18:00 Discharge ordered by . haseeb 18:21 Discharged to home ambulatory. mb9 18:21 Condition: stable 18:21 Discharge instructions given to patient, Instructed on discharge instructions, follow up and referral plans. Demonstrated understanding of instructions, follow-up care. 18:22 Patient left the ED. mb9 Signatures: Dispatcher [employer] EDMS Gerardo Brar MD MD sp3 July Meek RN RN mb9 Reba Suarez
--- NOTE | 2022-11-08 18:01 | EDPHYS ---
Physician Documentation [facility] Name: Robert Michelle Age: 71 yrs Sex: Male : 1950 Arrival Date: 11/08/2022 Time: 15:39 Bed 12 Private MD: ED Physician Gerardo Brar HPI: 11/08 17:44 This 71 yrs old Male presents to ER via Wheelchair with complaints of Fall Injury. sp3 17:44 71-year-old male with history of dementia, atrial fibrillation presents with left knee sp3 pain secondary to mechanical ground-level fall witnessed by his caregiver. Patient generally walks 2 [address] a local mall with caregiver and today he tripped and landed on his left knee. 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 He denies any other pain or injury including head, neck, chest ribs abdomen or any other extremity. Patient's states he is acting his normal self and does not think he has any other secondary injury. ROS, history and physical otherwise limited.. Historical: - Allergies: 16:12 No Known Allergies; mb9 - Home Meds: 16:12 Xarelto oral [Active]; mb9 - PMHx: 16:12 Atrial fibrillation; Dementia; mb9 - PSHx: 16:12 Appendectomy; mb9 - Immunization history:: Adult Immunizations up to date. - Social history:: Smoking status: Patient denies any tobacco usage or history of. ROS: 17:52 Constitutional: Negative for fever, chills, and weight loss, Neck: Negative for injury, sp3 pain, and swelling, Cardiovascular: Negative for chest pain, palpitations, and edema, Respiratory: Negative for shortness of breath, cough, wheezing, and pleuritic chest pain, Abdomen/GI: Negative for abdominal pain, nausea, vomiting, diarrhea, and constipation, Back: Negative for injury and pain, Skin: Negative for injury, rash, and discoloration, Neuro: Negative for headache, weakness, numbness, tingling, and seizure. 17:52 All other systems are negative. Exam: 17:52 Constitutional: This is a well developed, well nourished patient who is awake, alert, sp3 and in no acute distress. Head/Face: Normocephalic, atraumatic. Eyes: Pupils equal round and reactive to light, extra-ocular motions intact. Lids and lashes normal. Conjunctiva and sclera are non-icteric and not injected. Cornea within normal limits. Periorbital areas with no swelling, redness, or edema. ENT: Nares patent. No nasal discharge, no septal abnormalities noted. External auditory canals are clear. Oropharynx with no redness, swelling, or masses, exudates, or evidence of obstruction, uvula midline. Mucous membranes moist. Neck: Trachea midline, no thyromegaly or masses palpated, and no cervical lymphadenopathy. Supple, full range of motion without nuchal rigidity, or vertebral point tenderness. No Meningismus. Chest/axilla: Normal chest wall appearance and motion. Nontender with no deformity. No lesions are appreciated. Cardiovascular: Regular rate and rhythm with a normal S1 and S2. No gallops, murmurs, or rubs. Normal PMI, no JVD. No pulse deficits. Respiratory: Lungs have equal breath sounds bilaterally, clear to auscultation and percussion. No rales, rhonchi or wheezes noted. No increased work of breathing, no retractions or nasal flaring. Abdomen/GI: Soft, non-tender, with normal bowel sounds. No distension or tympany. No guarding or rebound. No evidence of tenderness throughout. Skin: Warm, dry with normal turgor. Normal color with no rashes, no lesions, and no evidence of cellulitis. 17:52 Musculoskeletal/extremity: Left knee effusion noted. Distal neurovascular exam is normal. Pain to patella but no crepitus noted. Drawer tests are negative and showed no laxity.. Vital Signs: 16:09 BP 137 / 88; Pulse 62; Resp 16; Temp 98.3(O); Pulse Ox 100% on R/A; Weight 79.38 kg; mb9 Height 5 ft. 8 in. ; 17:25 BP 111 / 61; Pulse 54; Resp 16; Pulse Ox 99% on R/A; mb9 18:21 BP 108 / 68; Pulse 58; Resp 15; Pulse Ox 99% on R/A; mb9 16:09 Body Mass Index 26.61 (79.38 kg, 172.72 cm) mb9 MDM: 16:05 Patient medically screened. sp3 17:52 Data reviewed: vital signs, nurses notes, radiologic studies. ED course: X-rays sp3 demonstrate no fracture or acute traumatic abnormality. Degenerative changes noted. Will discuss with patient and spouse on possible knee immobilizer and follow-up with orthopedics.. 11/08 16:07 Order name: Knee Left 3 View XRAY: Please get sunrise view; Complete Time: 17:41 sp3 11/08 18:01 Order name: Knee Immobilizer; Complete Time: 18:21 sp3 Administered Medications: No medications were administered Disposition Summary: 11/08/22 18:00 Discharge Ordered Location: Home sp3 Condition: Stable sp3 Diagnosis - Left knee effusion, left knee contusion, ground-level fall mechanical sp3 Followup: sp3 - With: Private Physician - When: Upon discharge from the Emergency Department - Reason: Continuance of care Discharge Instructions: - Discharge Summary Sheet sp3 - Knee Effusion sp3 - How to Use a Knee Immobilizer sp3 Forms: - Medication Reconciliation Form sp3 - Thank You Letter sp3 - Antibiotic Education sp3 - Prescription Opioid Use sp3 Signatures: Dispatcher [employer] EDMS Gerardo Brar MD MD sp3 July Meek RN RN mb9 Corrections: (The following items were deleted from the chart) 18:21 18:01 Crutches ordered. sp3 mb9
[2022-11-08 18:39] VITALS: TEMP 98.3
[2022-11-08 18:40] VITALS: O2SAT 99
[2022-11-08 18:42] VITALS: BP 108/68
== END 2022-11-08 18:22 | disposition home or self-care (01) ==
LOC: ER 15:39
DX: M25.462 Effusion, left knee (principal); W18.30XA Fall on same level, unspecified, initial encounter; I48.91 Unspecified atrial fibrillation; Z79.01 Long term (current) use of anticoagulants; F03.90 Unspecified dementia, unspecified severity, without behavioral disturbance, psychotic disturbance, mood disturbance, and anxiety
CPT/HCPCS: 99283

== ENCOUNTER 2024-04-30 14:54 | Inpatient (IN) | payer OTHER, BC ==
[2024-04-30 16:44] LABS: Absolute Lymphocytes (CBC) 1.4 K/uL (0.7-4.9); Absolute Monocytes 1.4 K/uL (0.1-1.3); Absolute Neutrophil 6.7 K/uL (1.8-8.0); Basophils % 0.5 % (0-1.3); Eosinophils % 0.4 % (0-4.4); Hematocrit 44.7 % (39.6-49.0); Hemoglobin 15.4 g/dL (13.6-17.9); Lymphocytes % 14.6 % (15.3-44.8); MCH 34.1 pg (27.0-35.0); MCHC 34.6 g/dL (32.0-36.0); MCV 98.7 fL (80-100); MPV 8.3 fL (7.6-11.3); Monocytes % 14.7 % (3.3-12.3); Neutrophils % 69.8 % (41.7-73.7); Nucleated Red Blood Cells % 0.1 % (0-0); Platelets 145 thou/uL (152-406); RBC Red Blood Cell Count 4.53 M/uL (4.33-5.43); Red Cell Distribution Width 13.9 % (12.1-15.2)
[2024-04-30 16:46] LABS: PT Prothrombin Time 14.5 SECONDS (9.4-12.5); Protime INR 1.3
--- NOTE | 2024-04-30 17:00 | RAD REPORT ---
EXAM: CT brain without contrast HISTORY: fall;Mental status change COMPARISON: None TECHNIQUE: Multiple contiguous axial images were obtained and a CT of the brain without contrast. Sag ittal and coronal reformats were performed. FINDINGS: No evidence of hydrocephalus, intracranial hemorrhage, or extra-axial fluid collection. Mild brain atrophy with mild periventricular and deep white matter chronic microvascular ischemic ch anges present. The calvarium is intact. Complete opacification of the right maxillary sinus. Periapical collections at the root of the right maxillary second molar, appears to communicate with the sinus cavity medially. Polypoidal thickening and opacification along the right middle meatus, extending to the rig ht ethmoidal and frontal sinuses as well. Mastoid air cells are essentially clear. IMPRESSION: No evidence of acute intracranial abnormality. Right maxillary sinus inflammatory mucosal thickening with complete opacification, possibly a odontog enic origin. EXAM: CT of the cervical spine without contrast HISTORY: fall;Mental status change COMPARISON: None TECHNIQUE: Multiple contiguous axial images were obtained in a CT of the cervical spine without contr ast. Sagittal and coronal reformats were performed. FINDINGS: The vertebral bodies demonstrate normal height and alignment. No evidence of acute fracture or subluxation.. Moderate to advanced multilevel degenerative changes are present, due to uncovertebral joint and facet arthropathy, as well as endplate spurring and annular mineralization is . Findings contribute to up to severe neural foraminal narrowing at the left C3-4, right C5-6, and bilateral C6-7 neural foramina. Suspected mild to moderate degrees of central canal narrowing at C5-6 and C6-7 No prevertebral soft tissue swelling is seen. The posterior facets are well aligned. Normal alignment of the skull base with the cervical spine is seen. The lung apices are unremarkable. IMPRESSION: No evidence of acute osseous abnormality of the cervical spine. Multilevel degenerative changes as above. If there is concern for cervical radiculopathy, additional evaluation by MRI on outpatient basis would be more helpful.
[2024-04-30 17:06] LABS: Albumin 3.4 g/dL (3.4-5.0); Albumin/Globulin Ratio 0.7 (1.1-1.8); Anion Gap 7.7 mEq/L (5.0-15.0); Bilirubin Direct 0.5 mg/dL (0-0.2); Bilirubin Indirect, Calculated 1.3 mg/dL (0.2-0.8); Bilirubin Total 1.8 mg/dL (0.2-1.0); Globulin 4.7 g/dL (2.3-3.5); Magnesium 1.9 mg/dL (1.6-2.4); Potassium 3.7 mEq/L (3.5-5.1); Protein, Total 8.1 g/dL (6.4-8.2)
[2024-04-30 17:16] LABS: Troponin High Sensitivity 251.6 pg/mL (<58.9)
--- NOTE | 2024-04-30 17:23 | RAD REPORT ---
EXAM: CT CHEST, ABDOMEN AND PELVIS WITHOUT CONTRAST CLINICAL INDICATION: Male, 73 years old. [facility] [[email or web address]] MAIN Fall TECHNIQUE: CT chest, abdomen and pelvis was performed, without IV contrast, as per department protoco l. Axial, sagittal and coronal reconstructions were obtained. One or more of the following dose reduction techniques were used: Automated exposure control, adjustment of the mA and/or kV according to the patient size, and/or iterative reconstruction. Unless otherwise specified, incidental findings do not require dedicated imaging follow-up. COMPARISON: CT abdomen and pelvis 07/23/2011 FINDINGS: The lack of intravenous contrast limits the sensitivity of this exam for evaluation of solid visceral organs, vascular structures, and retroperitoneum. Chest: LOWER NECK/CHEST WALL: Visualized thyroid gland and soft tissues are normal. LUNGS AND AIRWAYS: Airways are clear. No evidence of airspace or interstitial process. No nodules. PLEURA: No pleural effusion. No pneumothorax. Hemidiaphragms are normally positioned. MEDIASTINUM AND LYMPH NODES: No mediastinal mass or fluid collection. Normal size mediastinal, hilar, and axillary lymph nodes. THORACIC AORTA: Mild form aneurysmal dilation, with maximum ascending aorta caliber measuring 4.2 cm. PULMONARY ARTERIES: Normal caliber. HEART: Moderately enlarged. Abdomen/Pelvis LIVER: Stigmata of cirrhosis with nodular contour and marked right lobe atrophy. Left upper quadrant portosystemic varicosities. GALLBLADDER/BILE DUCTS: No biliary ductal dilatation. PANCREAS: No mass, ductal dilation, or billie-pancreatic fluid. SPLEEN: Normal size. No focal lesion. ADRENALS: Ovoid right adrenal 2.2 cm nodule, indeterminate. KIDNEYS AND URETERS: Normal size and contour. No hydronephrosis. GASTROINTESTINAL TRACT: Stomach is non-dilated. Small bowel has normal course and caliber. No colonic wall thickening or pericolonic inflammatory changes. Distal colonic diverticulosis. Nonspecific air-fluid levels within nondistended the right lower quadrant small bowel loops, could relate to mild enteritis. PERITONEUM: No free fluid. LYMPH NODES: No lymphadenopathy. ABDOMINAL AORTA AND OTHER VESSELS: Normal caliber aorta and IVC. URINARY BLADDER: Decompressed limiting evaluation. REPRODUCTIVE ORGANS: No pathologic process. MUSCULOSKELETAL: No acute or suspicious osseous abnormality. ADDITIONAL FINDINGS: None IMPRESSION: No acute or traumatic abnormalities in the chest, abdomen, or pelvis. Stigmata of cirrhosis with left upper quadrant portosystemic varicosities. Other incidental findings including sigmoid diverticulosis and mild fusiform aneurysmal dilation of t he ascending thoracic aorta.
--- NOTE | 2024-04-30 17:31 | RAD REPORT ---
EXAMINATION: ONE VIEW CHEST XR CLINICAL INDICATION: Male, 73 years old.,AMS TECHNIQUE: Frontal chest projection is submitted. Examination is limited by patient positioning and t echnique. COMPARISON: No prior exam. FINDINGS: The lungs are hypoinflated however grossly clear. No pneumothorax or sizable effusion. The heart is moderately enlarged. Mediastinal contours are unremarkable. IMPRESSION: No acute intrathoracic abnormalities. Moderate cardiomegaly.
[2024-04-30 18:02] LABS: Blood Morphology Comment NOT SEEN (NOT SEEN); Differential Total Cells Count 100; Lymphocytes 21 % (15-42); Monocytes 13 % (0-10); Platelet Estimate DECR; Segmented Neutrophils 66 % (40-80)
[2024-04-30 19:56] LABS: SARS-CoV-2 Antigen CONTROL BLUE LINE VIS/BG OK; SARS-CoV-2 Antigen Rapid Res Negative (Negative)
--- NOTE | 2024-04-30 20:26 | RAD REPORT ---
EXAM: Angio Aorta For Dissection HISTORY: [facility] MAIN no altered mental status Bed Name: 15 COMPARISON: CT of the chest, abdomen, and pelvis, earlier the same day TECHNIQUE: Multiple contiguous axial images were obtained a CTA of the chest and abdomen with contras t per aortic dissection protocol. Sagittal and coronal 3-D MIP reformats were performed. One or more of the following dose reduction techniques were used: Automated exposure control, adjustment of the mA and kV according to patient size, and iterative reconstruction. Unless otherwise specified, incidental findings do not require dedicated imaging follow-up. FINDINGS: PULMONARY ARTERIES: Normal in caliber without filling defects to suggest pulmonary emboli. MEDIASTINUM: No hilar or mediastinal lymphadenopathy. LUNGS: No focal infiltrates or masses. Elevation of the right hemidiaphragm again seen. PLEURAL SPACE: No pleural effusion or pneumothorax. LIVER: Nodular contour with stigmata of cirrhosis again seen.. KIDNEYS: Unremarkable. SPLEEN: Unremarkable. PANCREAS: Unremarkable. Stable right adrenal 2.3 cm nodule BOWEL: Colonic diverticulosis again seen.. RETROPERITONEUM: No lymphadenopathy BONES: Degenerative changes in the spine. ASCENDING THORACIC AORTA: Mild fusiform aneurysmal dilation, Again measuring 4.2 cm in caliber. Vari ant anatomy of the arch, with the left vertebral artery arising as the 30th vessel directly from the arch. DESCENDING THORACIC AORTA: Normal caliber without evidence of dissection or aneurysmal dilatation. ABDOMINAL AORTA: Normal caliber without evidence of dissection or aneurysmal dilatation. CELIAC TRUNK: Patent SMA: Patent KIM: Patent RENAL ARTERIES: Bilateral single renal arteries without significant atherosclerotic disease IMPRESSION: Mild ascending aortic aneurysmal fusiform dilation measuring up to 4.2 cm in caliber. No other eviden ce of thoracic or abdominal aortic aneurysm or dissection. Other stable findings as above.
--- NOTE | 2024-04-30 20:27 | P.HP ---
Certification for Inpatient With expected LOS: >2 Midnights Practitioner: I am a practitioner with admitting privileges, knowledge of patient current condition, hospital course, and medical plan of care. Services: Services provided to patient in accordance with Admission requirements found in Title 42 Section 412.3 of the Code of Federal Regulations Patient History Date of Service: 05/01/24 Reason for admission: Altered mental status History of Present Illness: 73-year-old male presents with confusion progressive over last 3 months. reports symptoms worsened last 5 days. He has been less alert. He still is able to answer some questions. Does have history of dementia. Patient also has history of atrial fibrillation on Xarelto. The reports that she recently has had flu. Denies any recent fevers cough diarrhea or dysuria. Patient has been more fatigued and confused and lethargic. He was also noted to have elevated troponin. Cardiology was consulted in the ER. Recommended continue Xarelto he was not started on heparin drip. He did not have any reported EKG changes. reports that patient did have some medication changes in the past several months with his primary care. He lives in private home with . Allergies No Known Allergies Allergy (Verified 04/30/24 22:00) Home Medications: Ascorbic Acid [Vitamin C] 05/01/24 Brexpiprazole [Rexulti] 05/01/24 Cyanocobalamin (Vitamin B-12) [Vitamin B12] 05/01/24 Donepezil HCl 05/01/24 Escitalopram [Lexapro] 10 mg PO DAILY 05/01/24 Folic Acid 2.5 05/01/24 Memantine HCl 10 mg PO 05/01/24 Potassium Chloride 20 meq PO 05/01/24 Pyridoxine HCl [Vitamin B-6] 05/01/24 Rivaroxaban [Xarelto] 20 mg PO 05/01/24 Triamterene/Hydrochlorothiazid [Triamterene-Hctz 37.5-25 mg Cp] 05/01/24 Review of Systems 10-point ROS is otherwise unremarkable General: Weakness, Malaise Physical Examination - Physical Exam General: Disheveled, Delirious, Other (face flushed) HEENT: Normocephalic Neck: Supple Respiratory: Clear to auscultation bilaterally, Normal air movement Cardiovascular: Regular rate/rhythm Gastrointestinal: Soft and benign Integumentary: Erythema Neurological: Dementia (answers some questions) - Studies Laboratory Data (last 24 hrs) 04/30/24 04/30/24 04/30/24 16:20 16:20 16:20 WBC 9.60 Hgb 15.4 Hct 44.7 Plt Count 145 L PT 14.5 H INR 1.30 Sodium 138 Potassium 3.7 BUN 15 Creatinine 0.69 L Glucose 103 Magnesium 1.9 Total Bilirubin 1.8 H AST 43 H ALT 25 Alkaline Phosphatase 126 H Microbiology Data (last 24 hrs): 04/30/24 19:10 Nasopharnyx Influenza Type A Antigen Screen - Final 04/30/24 19:10 Nasopharnyx Influenza Type B Antigen Screen - Final Assessment and Plan - Problems (Diagnosis) (1) Altered mental status Current Visit: Yes Status: Acute (2) Troponin I above reference range Current Visit: Yes Status: Acute (3) Dementia Current Visit: Yes Status: Acute - Plan 73-year-old male presents with confusion progressive over last 3 months. reports symptoms worsened last 5 days. He has been less alert. He still is able to answer some questions. Does have history of dementia Altered mental status History of dementia --Unclear etiology could be metabolic, medication, head CT negative may consider getting an MRI brain -- recently had flu, infectious etiology cannot be ruled -- Check urinalysis, viral panel, consider MRI brain and or neurology consult --may need prn seroquel Elevated troponin history of atrial fibrillation AAA -- Patient rate controlled, no acute EKG changes -- Will trend troponin keep on telemetry -- cardiology called in the ER -- Check echocardiogram -- On Xarelto, await med rec UTI --fu cx --start rocephin Full code, discussed with DVT prophylaxis: Xarelto (awaiting med rec) - Advance Directives Does patient have a Living Will: No Does patient have a Durable POA for Healthcare: No
--- NOTE | 2024-04-30 20:34 | EDPHYS ---
Physician Documentation [facility] Name: Robert Michelle Age: 73 yrs Sex: Male : 1950 Arrival Date: 04/30/2024 Time: 14:54 Bed 15 Private MD: ED Physician Wayne Robertson HPI: 04/30 15:35 This 73 yrs old Male presents to ER via Wheelchair with complaints of Altered Mental cp Status. 15:35 The patient presents with confusion. Onset: The symptoms/episode began/occurred 5 cp day(s) ago. The patient presents to the emergency department with difficulty standing, the patient is generally weak, difficult walking, the patient is generally weak. Associated signs and symptoms: Pertinent positives: recent fall while in shower that was observed by caregiver, Pertinent negatives: abdominal pain, chest pain, fever. Historical: - Allergies: 15:32 No Known Allergies; hb - PMHx: 15:32 Atrial fibrillation; Dementia; hb - PSHx: 15:32 Appendectomy; hb - Immunization history:: Adult Immunizations up to date. - Infectious Disease History:: Denies. - Social history:: Smoking status: unknown. ROS: 15:40 Constitutional: Positive for poor PO intake, Negative for fever, cp 15:40 Constitutional: History per HPI cp 15:40 Cardiovascular: Negative for chest pain, 15:40 Respiratory: Negative for cough, wheezing, 15:40 Abdomen/GI: Negative for vomiting, diarrhea, constipation, 15:40 Neuro: Positive for altered mental status, weakness, 15:40 Unable to obtain ROS due to altered mental status, baseline dementia, Exam: 15:45 Constitutional: The patient appears in no acute distress, alert, awake, cp non-diaphoretic, non-toxic, well developed, well nourished, 15:45 Head/Face: Normocephalic, atraumatic. cp 15:45 Eyes: Periorbital structures: appear normal, Pupils: equal, round, and reactive to light and accomodation, Conjunctiva: normal, no exudate, no injection, Sclera: no appreciated abnormality, Lids and lashes: appear normal, bilaterally, 15:45 ENT: External ear(s): are unremarkable, Nose: is normal, Mouth: Lips: dry, Oral mucosa: dry, Posterior pharynx: Airway: no evidence of obstruction, patent, 15:45 Neck: ROM/movement: Meningeal signs: are not present, nuchal rigidity, is not appreciated, 15:45 Chest/axilla: Inspection: normal, Palpation: is normal, no crepitus, no tenderness, 15:45 Cardiovascular: Rate: normal, Rhythm: regular, Edema: ankle edema, that is very mild, JVD: is not appreciated, 15:45 Respiratory: the patient does not display signs of respiratory distress, Respirations: normal, no use of accessory muscles, no retractions, labored breathing, is not present, Breath sounds: are clear throughout, no decreased breath sounds, no stridor, no wheezing, 15:45 Abdomen/GI: Inspection: abdomen appears normal, Bowel sounds: active, all quadrants, Palpation: abdomen is soft and non-tender, in all quadrants, 15:45 Back: vertebral tenderness, is not appreciated, 15:45 Skin: cellulitis, is not appreciated, no rash present. 15:45 Neuro: Orientation: to person, Motor: moves all fours, no focal deficits, Gait: unable to assess, unable to stand, 17:33 ECG was reviewed by the Attending Physician. cp Vital Signs: 15:30 BP 136 / 76; Pulse 68; Resp 16; Temp 98.5; Pulse Ox 100% on R/A; Weight 81.65 kg; hb Height 5 ft. 6 in. ; Pain 0/10; 17:30 BP 108 / 74; Pulse 75; Resp 16; Pulse Ox 97% on R/A; cm10 18:00 BP 125 / 76; Pulse 63; Resp 16; Pulse Ox 99% on R/A; cm10 18:30 BP 125 / 79; Pulse 69; Resp 15; Pulse Ox 97% ; cm10 19:00 BP 126 / 81; Pulse 67; Resp 18; Pulse Ox 96% on R/A; kj2 20:20 BP 126 / 75; Pulse 69; Resp 18; Pulse Ox 96% on R/A; kj2 21:05 BP 133 / 75; Pulse 72; Resp 18; Pulse Ox 95% on R/A; kj2 22:25 BP 126 / 61; Pulse 71; Temp 98.3; Pulse Ox 94% on R/A; kj2 23:15 BP 114 / 57; Pulse 72; Resp 18; Pulse Ox 95% on R/A; kj2 15:30 Body Mass Index 29.05 (81.65 kg, 167.64 cm) hb 15:30 Pain Scale: Adult hb MDM: 15:38 Medical Screening Exam initiated cp 16:00 Differential Diagnosis: CVA, electrolyte abnormality, hypoglycemia, intracranial bleed, cp overdose, pneumonia, seizure, sepsis, UTI, volume depletion. 20:35 Data reviewed: vital signs, nurses notes, lab test result(s), EKG, radiologic studies, cp CT scan, plain films. 20:35 Management of patient was discussed with the following: Hospitalist: DR Escamilla will cp admit after discussion. Consult with cardiology, DR Aquino done \[id number] and he will consult. Independent interpretation of the following test(s) in the Emergency Department EKG: See my EKG interpretation above. Historians other than the Patient: Spouse/Significant Other: provides HPI. Care significantly affected by the following chronic conditions: dementia. Counseling: I had a detailed discussion with the patient and/or guardian regarding the historical points, exam findings, and any diagnostic results supporting the discharge/admit diagnosis, lab results, radiology results, the need for further work-up and treatment in the hospital. Response to treatment: the patient's symptoms have mildly improved after treatment, and as a result, I will admit patient. 04/30 15:33 Order name: Basic Metabolic Panel; Complete Time: 17:24 cp 04/30 18:01 Interpretation: Normal except: CRE 0.69. 04/30 15:33 Order name: CBC with Diff; Complete Time: 18:16 cp 04/30 17:16 Interpretation: Normal except: PLT 145; LYM% 14.6; MN% 14.7; MNA 1.4. 04/30 15:33 Order name: LFT's; Complete Time: 17:24 cp 12 20:16 Interpretation: Normal except: AST 43; ALK 126; BILIT 1.8; BILID 0.5; IBILI, CALC 1.3; cp GLOB 4.7; A/G 0.7. 04/30 15:33 Order name: Magnesium; Complete Time: 17:24 cp 04/30 15:33 Order name: PT-INR; Complete Time: 17:15 cp 04/30 15:33 Order name: Troponin HS; Complete Time: 17:24 cp 04/30 18:03 Interpretation: Reviewed. cp 04/30 15:33 Order name: Urinalysis W/Microscopic; Complete Time: 17:28 04/30 18:03 Order name: Manual Differential; Complete Time: 18:16 EDMO 04/30 18:46 Order name: Blood Culture Adult (2) 04/30 18:46 Order name: Lactate w/ 2H reflex if indic.; Complete Time: 20:15 04/30 18:46 Order name: Influenza Screen (a \T\ B); Complete Time: 20:15 / 18:46 Order name: SARS RAPID; Complete Time: 20:15 04/30 20:39 Order name: Urinalysis w/ reflexes; Complete Time: 17:28 EDMO 04/30 20:39 Order name: CBC with Automated Diff EDMO 04/30 20:39 Order name: CBC with Automated Diff; Complete Time: 17:28 EDMO 04/30 20:39 Order name: Comprehensive Metabolic Panel EDMO 04/30 20:39 Order name: Comprehensive Metabolic Panel; Complete Time: 17:28 EDMO 04/30 20:39 Order name: Troponin High Sensitivity EDMO 04/30 20:39 Order name: Troponin High Sensitivity; Complete Time: 17:28 EDMO 04/30 20:39 Order name: Troponin High Sensitivity; Complete Time: 17:28 EDMO 04/30 20:39 Order name: Troponin High Sensitivity; Complete Time: 17:28 EDMO 04/30 15:33 Order name: XRAY Chest (1 view); Complete Time: 18:00 04/30 15:40 Order name: Chest Abd Pelvis Wo Con; Complete Time: 18:00 EDMO 04/30 15:41 Order name: Head C Spine Mpr Wo Con; Complete Time: 17:15 EDMO 04/30 17:15 Interpretation: Report reviewed. 04/30 18:32 Order name: CT Aorta for Dissection; Complete Time: 20:28 04/30 20:39 Order name: Echo without Doppler (2D) EDMO 04/30 15:33 Order name: EKG; Complete Time: 15:33 04/30 20:39 Order name: CONS Physician Consult EDMO 04/30 15:33 Order name: Cardiac monitoring; Complete Time: 17:31 04/30 15:33 Order name: EKG - Nurse/Tech; Complete Time: 17:31 04/30 15:33 Order name: IV Saline Lock; Complete Time: 18:29 cp 04/30 15:33 Order name: Labs collected and sent; Complete Time: 17:31 cp 04/30 15:33 Order name: O2 Per Protocol; Complete Time: 17:31 cp 04/30 15:33 Order name: O2 Sat Monitoring; Complete Time: 17:31 cp 04/30 18:16 Order name: Swallow Screen; Complete Time: 19:45 cp 04/30 18:46 Order name: Cath; Complete Time: 21:12 cp EC:33 Rate is 83 beats/min. Rhythm is regular. QRS interval is normal. QT interval is normal. cp Interpreted by me. Reviewed by me. Administered Medications: No medications were administered Disposition: 05/01 17:33 Critical Care:. cp Disposition Summary: 04/30/24 20:33 Hospitalization Ordered Notes: Hospitalization Status: Inpatient Admission cp Provider: Dorys Escamilla cp Condition: Stable cp Problem: new cp Symptoms: are unchanged cp Bed/Room Type: Standard cp Location: Telemetry/MedSurg (Inpatient)(04/30/24 22:05) lg3 Room Assignment: 404(04/30/24 22:05) lg3 Diagnosis - Subsequent non-ST elevation (NSTEMI) myocardial infarction cp - Altered mental status, unspecified cp Forms: - Medication Reconciliation Form cp - SBAR form cp - Leadership Thank You Letter cp Critical care time excluding procedures: 17:33 Critical care time: Bedside Care: 7 minutes, Consultation: 25 minutes, Family cp Intervention: 7 minutes. Total time: 39 minutes Addendum: 05/07/2024 07:07 Co-signature as Attending Physician, Wayne Robertson MD I reviewed the patient's care r n provided by the Advanced Practice Provider and agree with the diagnosis and treatment plan. Signatures: Dispatcher [employer] Wayne Sutton MD MD rn Akil Brown, SPECIAL EDUCATION AIDE-C SPECIAL EDUCATION AIDE-Cla1 Joao James PA PA cp Garcia, Cindy, RN MILAD Mairta Jimenez, Breana Shaw RN, RN RN lg3 Moon Camacho RN RN cm10 Corrections: (The following items were deleted from the chart) 04/30 15:33 15:33 BASIC METABOLIC PANEL+C.LAB.BRZ ordered. EDMS EDMS 15:33 15:33 CBC+H.LAB.BRZ ordered. EDMS EDMS 15:33 15:33 HEPATIC FUNCTION+C.LAB.BRZ ordered. EDMS EDMS 15:33 15:33 MAGNESIUM+C.LAB.BRZ ordered. EDMS EDMS 15:33 15:33 PROTIME (+INR)+COAG.LAB.BRZ ordered. EDMS EDMS 15:33 15:33 Troponin High Sensitivity+C.LAB.BRZ ordered. EDMS EDMS 15:41 15:33 Head C Spine Cap Wo Con+CT.RAD.BRZ ordered. EDMS EDMS 22:02 20:33 Telemetry/MedSurg (Inpatient) cp cg 22:02 20:33 cp cg 22:05 22:02 [facility] ER HOLD cg lg3 22:05 22:02 ERHOLD- cg lg3
--- NOTE | 2024-04-30 20:34 | ER ---
Nurse's Notes [facility] Name: Robert Michelle Age: 73 yrs Sex: Male : 1950 Arrival Date: 04/30/2024 Time: 14:54 Bed 15 Private MD: Diagnosis: Subsequent non-ST elevation (NSTEMI) myocardial infarction;Altered mental status, unspecified Presentation: 04/30 15:30 Chief complaint: reports difficulty walking, generalized weakness, and sleeping hb more since a controlled fall to floor 5 days ago. Coronavirus screen: At this time, the client does not indicate any symptoms associated with coronavirus-19. Ebola Screen: No symptoms or risks identified at this time. Initial Sepsis Screen: Does the patient meet any 2 criteria? No. Patient's initial sepsis screen is negative. Does the patient have a suspected source of infection? No. Patient's initial sepsis screen is negative. Risk Assessment: Do you want to hurt yourself or someone else? Patient reports no desire to harm self or others. Onset of symptoms was April 26, 2024. 15:30 Method Of Arrival: Wheelchair hb 15:30 Acuity: CROW 2 hb Triage Assessment: 17:00 General: Appears in no apparent distress. Behavior is drowsy. Pain: Unable to use pain cm10 scale. Does not appear to understand pain scale. Neuro: No deficits noted. Level of Consciousness is confused. Respiratory: No deficits noted. Airway is patent Respiratory effort is even, unlabored, Respiratory pattern is regular, symmetrical. Historical: - Allergies: 15:32 No Known Allergies; hb - PMHx: 15:32 Atrial fibrillation; Dementia; hb - PSHx: 15:32 Appendectomy; hb - Immunization history:: Adult Immunizations up to date. - Infectious Disease History:: Denies. - Social history:: Smoking status: unknown. Screenin:07 [facility] ED Fall Risk Assessment (Adult) History of falling in the last 3 months, cm10 including since admission Yes- single mechanical fall (1 pt) Confusion or Disorientation Yes (5 pts) Intoxicated or Sedated No (0 pts) Impaired Gait Yes (1 pt) Mobility Assist Device Used Yes (1 pt) Altered Elimination Yes (1 pt) Score/Fall Risk Level 3 or more points = High Risk Oriented to surroundings, Maintained a safe environment, Hourly rounding (assess needs \T\ fall precautionary measures) done. Abuse screen: Denies threats or abuse. Denies injuries from another. Nutritional screening: No deficits noted. Tuberculosis screening: No symptoms or risk factors identified. Assessment: 19:00 General: Appears in no apparent distress. Behavior is calm. Pain: Denies pain. Neuro: kj2 Level of Consciousness is awake, alert, Oriented to person. Cardiovascular: Patient's skin is warm and dry. Respiratory: Airway is patent Respiratory effort is unlabored. GI: No signs and/or symptoms were reported involving the gastrointestinal system. : No signs and/or symptoms were reported regarding the genitourinary system. 19:20 Reassessment: blood cultures sent. kj2 20:00 Reassessment: Patient appears in no apparent distress at this time. Patient and/or kj2 family updated on plan of care and expected duration. Pain level reassessed. Patient is alert, oriented x 3, equal unlabored respirations, skin warm/dry/pink. 21:05 Reassessment: Patient appears in no apparent distress at this time. Patient and/or kj2 family updated on plan of care and expected duration. Pain level reassessed. Patient is alert, oriented x 3, equal unlabored respirations, skin warm/dry/pink. 21:05 Reassessment: leblanc catheter placed per sterile technique, 300 ml urine , patient kj2 tolerated well. 22:18 Reassessment: Patient appears in no apparent distress at this time. Patient and/or kj2 family updated on plan of care and expected duration. Pain level reassessed. Patient is alert, oriented x 3, equal unlabored respirations, skin warm/dry/pink. 22:34 Reassessment: called, no answer at 2232. kj2 23:15 Reassessment: Patient appears in no apparent distress at this time. Patient and/or kj2 family updated on plan of care and expected duration. Pain level reassessed. Patient is alert, oriented x 3, equal unlabored respirations, skin warm/dry/pink. Vital Signs: 15:30 BP 136 / 76; Pulse 68; Resp 16; Temp 98.5; Pulse Ox 100% on R/A; Weight 81.65 kg; hb Height 5 ft. 6 in. ; Pain 0/10; 17:30 BP 108 / 74; Pulse 75; Resp 16; Pulse Ox 97% on R/A; cm10 18:00 BP 125 / 76; Pulse 63; Resp 16; Pulse Ox 99% on R/A; cm10 18:30 BP 125 / 79; Pulse 69; Resp 15; Pulse Ox 97% ; cm10 19:00 BP 126 / 81; Pulse 67; Resp 18; Pulse Ox 96% on R/A; kj2 20:20 BP 126 / 75; Pulse 69; Resp 18; Pulse Ox 96% on R/A; kj2 21:05 BP 133 / 75; Pulse 72; Resp 18; Pulse Ox 95% on R/A; kj2 22:25 BP 126 / 61; Pulse 71; Temp 98.3; Pulse Ox 94% on R/A; kj2 23:15 BP 114 / 57; Pulse 72; Resp 18; Pulse Ox 95% on R/A; kj2 15:30 Body Mass Index 29.05 (81.65 kg, 167.64 cm) hb 15:30 Pain Scale: Adult hb ED Course: 14:58 Patient arrived in ED. mr 15:28 Joao James PA is PHCP. cp 15:28 Wayne Robertson MD is Attending Physician. cp 15:32 Triage completed. hb 15:32 Arm band placed on. hb 15:53 Chest Abd Pelvis Wo Con In Process Unspecified. EDMS 15:53 Head C Spine Mpr Wo Con In Process Unspecified. EDMS 16:25 Initial lab(s) drawn, by me, sent to lab. Missed attempt(s): 20 gauge in right bc6 antecubital area. Bleeding controlled, band aid applied, catheter tip intact. 16:29 XRAY Chest (1 view) In Process Unspecified. EDMS 17:09 Moon Camacho, RN is Primary Nurse. cm10 18:30 Accessed peripheral vein via ultrasound, utilizing dynamic ultrasound technique Clean \T\ cm10 dry. Dressing intact. Good blood return. Flushes easily. 20G RIGHT FOREARM. Missed attempt(s): 20 gauge in left wrist. Bleeding controlled, band aid applied, catheter tip intact. 19:00 Patient has correct armband on for positive identification. Bed in low position. Call kj2 light in reach. Side rails up X 1. Adult w/ patient. Provided Education on: CALL LIGHT. 19:04 Report given to MILAD OTTO. cm10 19:26 Leanna Youssef, RN is Primary Nurse. kj2 19:27 Lactate w/ 2H reflex if indic. Sent. kj2 19:27 SARS RAPID Sent. kj2 19:27 Influenza Screen (a \T\ B) Sent. kj2 19:54 CT Aorta for Dissection In Process Unspecified. EDMS 20:33 Dorys Escamilla MD is Hospitalizing Provider. cp 21:29 Repositioned patient. kj2 21:40 Urinalysis W/Microscopic Sent. kj2 23:24 Blood Culture Adult (2) Sent. kj2 23:25 No provider procedures requiring assistance completed. kj2 23:25 Patient admitted, IV remains in place. kj2 Administered Medications: No medications were administered Medication: 19:07 VIS not applicable for this client. cm10 Outcome: 20:33 Decision to Hospitalize by Provider. cp 23:25 Admitted to Med/surg accompanied by tech, via stretcher, room 404, kj2 23:25 Condition: stable 23:25 Instructed on the need for admit, 23:27 Patient left the ED. kj2 Signatures: Dispatcher [employer] EDDE July Ba, Reg Reg mr Joao James, PA PA cp Marita Jimenez, RN RN Latosha Rodriguez bc6 Moon Camacho, RN RN cm10 Leanna Youssef, RN RN kj2
[2024-04-30 22:01] LABS: Sqamous Epithelial <5 /HPF (None Seen); Urine Bacteria <20 /HPF (<20); Urine Bilirubin NEGATIVE (Negative); Urine Blood Negative (Negative); Urine Clarity Clear (Clear); Urine Color Light-Yellow (Yellow); Urine Culture Reflex Order REFLEXED; Urine Glucose NEGATIVE (Negative); Urine Ketones 1+ (Negative); Urine Micro Reflex YN NO BILL MICROSCOPIC; Urine Mucus Slight /HPF (None Seen); Urine Nitrite NEGATIVE (Negative); Urine Protein NEGATIVE (Negative); Urine RBC <5 /HPF (None Seen); Urine Urobilinogen Normal (Normal); Urine pH 5.5 (5.0-7.0)
[2024-04-30 22:21] LABS: Specific Gravity > 1.030 (1.005-1.030)
[2024-05-01 03:57] LABS: Sqamous Epithelial None Seen /HPF (None Seen); Urine Bacteria None Seen /HPF (<20); Urine Bilirubin NEGATIVE (Negative); Urine Blood 2+ (Negative); Urine Clarity Clear (Clear); Urine Color Yellow (Yellow); Urine Culture Reflex Order REFLEXED; Urine Glucose NEGATIVE (Negative); Urine Ketones 1+ (Negative); Urine Microscopic Reflex YN ORDER UMIC; Urine Mucus Slight /HPF (None Seen); Urine Nitrite NEGATIVE (Negative); Urine Protein 1+ (Negative); Urine RBC >50 /HPF (None Seen); Urine Urobilinogen 2+ (Normal); Urine WBC 20-50 /HPF (<5)
[2024-05-01 04:01] LABS: Specific Gravity > 1.030 (1.005-1.030)
[2024-05-01] MEDS: ACETAMINOPHEN 325 MG TABLET PO PRN (06:36)
[2024-05-01] MEDS: CEFTRIAXONE 1,000 MG in NA CHLORIDE 0.9% 50 ML IVPB SCH (06:36)
[2024-05-01 07:09] LABS: Absolute Lymphocytes (CBC) 1.4 K/uL (0.7-4.9); Absolute Monocytes 1.1 K/uL (0.1-1.3); Absolute Neutrophil 5.4 K/uL (1.8-8.0); Basophils % 0.4 % (0-1.3); Eosinophils % 0.3 % (0-4.4); Hematocrit 35.9 % (39.6-49.0); Hemoglobin 12.9 g/dL (13.6-17.9); Lymphocytes % 17.3 % (15.3-44.8); MCH 34.7 pg (27.0-35.0); MCHC 35.9 g/dL (32.0-36.0); MCV 96.6 fL (80-100); MPV 7.4 fL (7.6-11.3); Monocytes % 14.1 % (3.3-12.3); Neutrophils % 67.9 % (41.7-73.7); Nucleated Red Blood Cells % 0.1 % (0-0); Platelets 148 thou/uL (152-406); RBC Red Blood Cell Count 3.72 M/uL (4.33-5.43); Red Cell Distribution Width 14.1 % (12.1-15.2)
[2024-05-01 07:31] LABS: Albumin 2.6 g/dL (3.4-5.0); Albumin/Globulin Ratio 0.7 (1.1-1.8); Anion Gap 6.6 mEq/L (5.0-15.0); Bilirubin Total 2.6 mg/dL (0.2-1.0); Globulin 3.7 g/dL (2.3-3.5); Potassium 3.6 mEq/L (3.5-5.1); Protein, Total 6.3 g/dL (6.4-8.2)
[2024-05-01 07:32] LABS: Troponin High Sensitivity 256.9 pg/mL (<58.9)
--- NOTE | 2024-05-01 12:06 | P.CNS ---
Date of Consult: 05/01/24 Chief Complaint: Altered mental status History of Present Illness: Patient with PMH of atrial fibrillation, dementia, has been having worsening mental status for the last few months, was brought to the hospital for confusion, upon talking to patient he was able to answer questions, he denies having chest pain, no palpitations, no SOB, no syncope. Allergies No Known Allergies Allergy (Verified 04/30/24 22:00) Home medications list reviewed: Yes Home Medications: Ascorbic Acid [Vitamin C] 05/01/24 Brexpiprazole [Rexulti] 05/01/24 Cyanocobalamin (Vitamin B-12) [Vitamin B12] 05/01/24 Donepezil HCl 05/01/24 Escitalopram [Lexapro] 10 mg PO DAILY 05/01/24 Folic Acid 2.5 05/01/24 Memantine HCl 10 mg PO 05/01/24 Potassium Chloride 20 meq PO 05/01/24 Pyridoxine HCl [Vitamin B-6] 05/01/24 Rivaroxaban [Xarelto] 20 mg PO 05/01/24 Triamterene/Hydrochlorothiazid [Triamterene-Hctz 37.5-25 mg Cp] 05/01/24 - Past Medical/Surgical History Diabetic: No -: appendectomy 1965 -: radial keratotomy 1983 -: heart cath 2009 -: cardioversion 2009 - Social History Smoking Status: Unknown if ever smoked Alcohol use: Yes CD- Drugs: No Caffeine use: No Place of Residence: Home Review of Systems 10-point ROS is otherwise unremarkable Physical Examination Temp Pulse Resp BP Pulse Ox 99.2 F 66 18 110/57 L 92 05/01/24 08:00 05/01/24 08:00 05/01/24 08:00 05/01/24 08:00 05/01/24 08:00 General: Alert, In no apparent distress HEENT: Atraumatic, PERRLA, Mucous membr. moist/pink, EOMI, Sclerae nonicteric Neck: Supple, 2+ carotid pulse no bruit, No LAD, Without JVD or thyroid abnormality Respiratory: Clear to auscultation bilaterally, Normal air movement Cardiovascular: Regular rate/rhythm, Normal S1 S2 Gastrointestinal: Normal bowel sounds, No tenderness Musculoskeletal: No tenderness Integumentary: No rashes Neurological: Normal gait, Normal speech, Normal tone, Normal affect Lymphatics: No axilla or inguinal lymphadenopathy Laboratory Data (last 24 hrs) 04/30/24 04/30/24 04/30/24 16:20 16:20 16:20 WBC 9.60 Hgb 15.4 Hct 44.7 Plt Count 145 L PT 14.5 H INR 1.30 Sodium 138 Potassium 3.7 BUN 15 Creatinine 0.69 L Glucose 103 Magnesium 1.9 Total Bilirubin 1.8 H AST 43 H ALT 25 Alkaline Phosphatase 126 H - Problems (1) Atrial fibrillation Current Visit: Yes Status: Acute Plan: Hold Xarelto for now just in case patient need coronary angiogram start heparin drip instead continue to monitor on telemetery. (2) Dementia Current Visit: Yes Status: Acute (3) Troponin I above reference range Current Visit: Yes Status: Acute Plan: most likely secondary to UTI, as troponin are mild elevated and no significant delta, keep on heparin drip for now, get echo to check on wall motions and EF.
--- NOTE | 2024-05-01 13:10 | P.CNS ---
Date of Consult: 05/01/24 This is a 73-year-old male coming in with confusion of last 3 months. Patient is not a good historian most of the history was obtained through medical record and staff. According to records patient condition worsened 5 days ago I have been consulted for urinary tract infection patient is currently getting Rocephin denies any headache nausea vomiting chest pain abdominal pain constipation diarrhea Past medical history as per HPI Social history non-smoker nondrinker Family history noncontributory Acetaminophen (Acetaminophen 325 Mg Tablet) 650 mg PO Q4HP PRN PRN Reason: Pain scale 2-4 (Mild) Last Admin: 05/01/24 06:36 Dose: 650 mg Ceftriaxone Sodium 1,000 mg/ (Sodium Chloride) 50 mls @ 100 mls/hr IVPB DAILY RJ; Protocol Last Admin: 05/01/24 06:36 Dose: 50 mls Rivaroxaban (Rivaroxaban 10 Mg Tablet) 20 mg PO DAILY AT SUPPER RJ Allergy/AdvReac Type Severity Reaction Status Date / Time No Known Allergies Allergy Verified 04/30/24 22:00 Review of system: 10 point review was performed Physical exam: Patient laying in bed not in any acute cardiopulmonary distress Temp Pulse Resp BP Pulse Ox 98.3 F 65 16 127/60 97 05/01/24 12:00 05/01/24 12:00 05/01/24 12:00 05/01/24 12:00 05/01/24 12:00 HEENT: Within normal limits Neck supple, no lymph apathy Lungs: Basal crackles Heart: S1-S2 regular Abdomen: Soft, bowel sound present Extremity: No edema Laboratory Last Values WBC 9.60 thou/uL (4.3-10.9) 04/30/24 16:20 RBC 4.53 M/uL (4.33-5.43) 04/30/24 16:20 Hgb 15.4 g/dL (13.6-17.9) 04/30/24 16:20 Hct 44.7 % (39.6-49.0) 04/30/24 16:20 MCV 98.7 fL (80-100) 04/30/24 16:20 MCH 34.1 pg (27.0-35.0) 04/30/24 16:20 MCHC 34.6 g/dL (32.0-36.0) 04/30/24 16:20 RDW 13.9 % (12.1-15.2) 04/30/24 16:20 Plt Count 145 thou/uL (152-406) L 04/30/24 16:20 MPV 8.3 fL (7.6-11.3) 04/30/24 16:20 Neutrophils % 69.8 % (41.7-73.7) 04/30/24 16:20 Lymphocytes % 14.6 % (15.3-44.8) L 04/30/24 16:20 Monocytes % 14.7 % (3.3-12.3) H 04/30/24 16:20 Eosinophils % 0.4 % (0-4.4) 04/30/24 16:20 Basophils % 0.5 % (0-1.3) 04/30/24 16:20 Absolute Neutrophils 6.7 K/uL (1.8-8.0) 04/30/24 16:20 Segmented Neutrophils 66 % (40-80) 04/30/24 16:20 Absolute Lymphocytes 1.4 K/uL (0.7-4.9) 04/30/24 16:20 Lymphocytes 21 % (15-42) 04/30/24 16:20 Monocytes 13 % (0-10) H 04/30/24 16:20 Absolute Monocytes 1.4 K/uL (0.1-1.3) H 04/30/24 16:20 Absolute Eosinophils 0.0 K/uL (0-0.5) 04/30/24 16:20 Absolute Basophils 0.0 K/uL (0-0.5) 04/30/24 16:20 Platelet Estimate Decr 04/30/24 16:20 Morphology Comment Not seen (NOT SEEN) 04/30/24 16:20 PT 14.5 SECONDS (9.4-12.5) H 04/30/24 16:20 INR 1.30 04/30/24 16:20 Sodium 138 mEq/L (136-145) 04/30/24 16:20 Potassium 3.7 mEq/L (3.5-5.1) 04/30/24 16:20 Chloride 105 mEq/L (98-107) 04/30/24 16:20 Carbon Dioxide 29 mEq/L (21-32) 04/30/24 16:20 Anion Gap 7.7 mEq/L (5.0-15.0) 04/30/24 16:20 BUN 15 mg/dL (7-18) 04/30/24 16:20 Creatinine 0.69 mg/dL (0.70-1.30) L 04/30/24 16:20 Est GFR (CKD-EPI) 97 ml/min (=/>90) 04/30/24 16:20 Glucose 103 mg/dL (74-106) 04/30/24 16:20 Lactic Acid 1.5 mmol/L (0.4-2.0) 04/30/24 19:15 Calcium 9.5 mg/dL (8.5-10.1) 04/30/24 16:20 Magnesium 1.9 mg/dL (1.6-2.4) 04/30/24 16:20 Total Bilirubin 1.8 mg/dL (0.2-1.0) H 04/30/24 16:20 Direct Bilirubin 0.5 mg/dL (0-0.2) H 04/30/24 16:20 Indirect Bilirubin 1.3 mg/dL (0.2-0.8) H 04/30/24 16:20 AST 43 U/L (15-37) H 04/30/24 16:20 ALT 25 U/L (16-61) 04/30/24 16:20 Alkaline Phosphatase 126 U/L (45-117) H 04/30/24 16:20 Troponin I High Sens 251.6 pg/mL (<58.9) H* 04/30/24 16:20 Serum Total Protein 8.1 g/dL (6.4-8.2) 04/30/24 16:20 Albumin 3.4 g/dL (3.4-5.0) 04/30/24 16:20 Globulin 4.7 g/dL (2.3-3.5) H 04/30/24 16:20 Albumin/Globulin Ratio 0.7 (1.1-1.8) L 04/30/24 16:20 Urine Color Light-yellow (Yellow) 04/30/24 21:15 Urine Clarity Clear (Clear) 04/30/24 21:15 Urine pH 5.5 (5.0-7.0) 04/30/24 21:15 Ur Specific [place] > 1.030 (1.005-1.030) H 04/30/24 21:15 Glucose (UA)(Auto) Negative (Negative) 04/30/24 21:15 Urine Ketones 1+ (Negative) H 04/30/24 21:15 Urine Blood Negative (Negative) 04/30/24 21:15 Urine Nitrite Negative (Negative) 04/30/24 21:15 Urine Bilirubin Negative (Negative) 04/30/24 21:15 Urine Urobilinogen Normal (Normal) 04/30/24 21:15 Ur Leukocyte Esterase 250 Reinaldo/uL (Negative) H 04/30/24 21:15 Urine RBC <5 /HPF (None Seen) 04/30/24 21:15 Urine WBC 10-20 /HPF (<5) H 04/30/24 21:15 Ur Squamous Epith Cells <5 /HPF (None Seen) 04/30/24 21:15 U Non-Squamous Epi Cells <5 /HPF (None Seen) 04/30/24 21:15 Urine Bacteria <20 /HPF (<20) 04/30/24 21:15 Urine Mucus Slight /HPF (None Seen) 04/30/24 21:15 Urine Culture Reflexed Reflexed 04/30/24 21:15 Urine Total Protein Negative (Negative) 04/30/24 21:15 SARS-CoV-2 Ag (Rapid) Negative (Negative) 04/30/24 19:10 04/30/24 19:10 Nasopharnyx Influenza Type A Antigen Screen - Final 04/30/24 19:10 Nasopharnyx Influenza Type B Antigen Screen - Final Assessment and plan: Urosepsis with altered mental status Anemia of chronic disease Thrombocytopenia Continue Rocephin for 5 to 7 days can be switched to oral once bacteria is isolated Thank you for consult Monitor signs of infection with WBC and fever trends
[2024-05-01] MEDS ORDERED: RIVAROXABAN 10 MG TABLET PO SCH (17:00)
--- NOTE | 2024-05-01 17:06 | P.PN ---
Subjective Date of Service: 05/01/24 Chief Complaint: Altered mental status Patient opens eyes to verbal and communicate but very confused. He is not able to give any subjective complaint. No agitation reported. Patient experienced low-grade fever this morning. Physical Examination - Vital Signs Temperature: 98.3 F Blood Pressure: 127/60 Pulse: 65 Respirations: 16 Pulse Ox (%): 97 - Studies Laboratory Data (last 24 hrs) 04/30/24 04/30/24 16:20 16:20 WBC 9.60 Hgb 15.4 Hct 44.7 Plt Count 145 L Sodium 138 Potassium 3.7 BUN 15 Creatinine 0.69 L Glucose 103 Magnesium 1.9 Total Bilirubin 1.8 H AST 43 H ALT 25 Alkaline Phosphatase 126 H Microbiology Data (last 24 hrs): 04/30/24 19:10 Nasopharnyx Influenza Type A Antigen Screen - Final 04/30/24 19:10 Nasopharnyx Influenza Type B Antigen Screen - Final Assessment And Plan - Plan Physical examination General: Awake, confused, NAD, HEENT: Conjunctiva not pale, anicteric sclera Neck: Supple, no elevated JVD Heart: Heart sounds 1 and 2 normal, regular rhythm, normal rate, no pedal edema Lungs: Clear to auscultation bilaterally, adequate breath sounds bilaterally, no rhonchi or crackles. Abdomen: Soft, nondistended, nontender, normal bowel sounds. Extremities: No tenderness, no deformity Skin: Normal skin turgor, no rash, no nodules or ulcers. Neuro: Mild right facial droop, normal speech. Motor in all extremities are normal. Psychiatry: No agitation. Acute metabolic encephalopathy Dementia No change from yesterday History of recent flu. Flu screen is negative AM probably secondary to UTI. Patient had low-grade fever this morning. IV antibiotics MRI of the brain ordered given mild right facial droop. Monitor. Periodic reorientation. Elevated troponin History of atrial fibrillation AAA Cardiology input appreciated. Troponin elevated but trended flat. Xarelto changed to heparin drip in case patient will need cardiac cath. Cardiology to follow. A-fib is rate controlled Patient is not on any rate control medication. Check lipid profile. echocardiogram is pending. UTI Likely causing AMS in a dementia patient. Continue IV Rocephin. Follow urine culture. Liver cirrhosis Signs of portal hypertension on the CT abdomen. Ammonia level is normal. Monitor LFTs. Outpatient follow-up. DVT prophylaxis: On heparin drip. Advanced directive: full code.
[2024-05-01 17:33] LABS: Absolute Eosinophils 0.1 K/uL (0-0.5); Absolute Lymphocytes (CBC) 1.4 K/uL (0.7-4.9); Absolute Monocytes 1.1 K/uL (0.1-1.3); Absolute Neutrophil 5.6 K/uL (1.8-8.0); Basophils % 0.4 % (0-1.3); Eosinophils % 0.7 % (0-4.4); Hematocrit 39.9 % (39.6-49.0); Hemoglobin 14.1 g/dL (13.6-17.9); Lymphocytes % 16.9 % (15.3-44.8); MCH 34.2 pg (27.0-35.0); MCHC 35.3 g/dL (32.0-36.0); MPV 7.2 fL (7.6-11.3); Nucleated Red Blood Cells % 0.1 % (0-0); Platelets 138 thou/uL (152-406); RBC Red Blood Cell Count 4.12 M/uL (4.33-5.43); Red Cell Distribution Width 13.8 % (12.1-15.2)
[2024-05-01 17:51] LABS: PT Prothrombin Time 15.2 SECONDS (9.4-12.5); PTT, Activated Partial Thromb 36.8 SECONDS (24.3-36.9); Protime INR 1.37
[2024-05-01] MEDS: HEPARIN 5000 UNIT/ML 1 ML VIAL IV ONE (18:11)
[2024-05-01] MEDS: HEPARIN/D5W 25,000 UNIT/500 ML BAG IV PRN (18:19)
--- NOTE | 2024-05-01 21:09 | RAD REPORT ---
EXAMINATION: MRI BRAIN WITHOUT AND WITH CONTRAST CLINICAL INDICATION: Right facial droop TECHNIQUE: Multiplanar multisequence MR images of the brain were obtained without and with intravenou s contrast. Unless otherwise specified, incidental findings do not require dedicated imaging follow-up. COMPARISON: 04/30/2024 CT FINDINGS: INTRACRANIAL: Diffusion-weighted images show no acute or early subacute infarction. There is moderate brain atrophy with moderateT2/FLAIR hyperintensities in the periventricular and deep white matter regions, likely representing chronic microvascular ischemic changes. There is no mass effect or midli ne shift. No abnormal extraaxial fluid collection. VASCULATURE: Normal signal voids in the larger intracranial arteries and dural venous sinuses. SINUSES: Complete opacification right maxillary antrum. BONE: The marrow signal pattern is within normal limits. CONTRAST: No pathologic postcontrast enhancement to indicate tumor or infection. OTHER FINDINGS: IMPRESSION: No acute or aggressive intracranial abnormalities. Right maxillary sinusitis.
[2024-05-02 07:38] LABS: MPV 7.4 fL (7.6-11.3); Platelets 130 thou/uL (152-406)
[2024-05-02 07:44] LABS: Anion Gap 4.7 mEq/L (5.0-15.0); Potassium 3.7 mEq/L (3.5-5.1)
--- NOTE | 2024-05-02 17:00 | P.PN ---
Subjective Date of Service: 05/02/24 Chief Complaint: Altered mental status Patient is more awake today. He is tolerating diet. No agitation reported. Patient remain quite confused. Physical Examination - Vital Signs Temperature: 98.1 F Blood Pressure: 133/62 Pulse: 66 Respirations: 18 Pulse Ox (%): 98 Assessment And Plan - Plan Physical examination General: Awake, confused, NAD, Neck: Supple, no elevated JVD Heart: Heart sounds 1 and 2 normal, regular rhythm, normal rate, no pedal edema Lungs: Clear to auscultation bilaterally, adequate breath sounds bilaterally, no rhonchi or crackles. Abdomen: Soft, nondistended, nontender, normal bowel sounds. Extremities: No tenderness, no deformity Skin: Normal skin turgor, no rash, no nodules or ulcers. Neuro: normal speech. No focal motor deficit. Psychiatry: No agitation. Plan: Acute metabolic encephalopathy Dementia Mental status is improving. History of recent flu. Flu screen is negative AM likely secondary to UTI. No fever over the past 24 hours. On IV antibiotics MRI of the brain is negative for acute CVA. Periodic reorientation. Elevated troponin History of atrial fibrillation AAA Cardiology is following. Troponin elevated but trended flat. Xarelto changed to heparin drip in case patient will need cardiac cath. A-fib is rate controlled Patient is not on any rate control medication. echocardiogram is pending. UTI Likely causing AMS. Urine culture: Mixed growth Continue IV Rocephin. No fever today. Patient seems to be responding to IV Rocephin. Liver cirrhosis Signs of portal hypertension on the CT abdomen. Ammonia level is normal. Monitor LFTs. Outpatient follow-up. Impaired mobility Patient at baseline is able to ambulate with a walker under supervision. PT to evaluate. DVT prophylaxis: On heparin drip. Advanced directive: full code.
--- NOTE | 2024-05-02 17:50 | P.PN ---
Subjective Date of Service: 05/02/24 Chief Complaint: Altered mental status Subjective: No new changes, No C/O voiced, Tolerating diet, Ambulating, Improving Review of Systems 10-point ROS is otherwise unremarkable Physical Examination - Vital Signs Temperature: 98.1 F Blood Pressure: 133/62 Pulse: 66 Respirations: 18 Pulse Ox (%): 98 - Physical Exam General: Alert, In no apparent distress HEENT: Atraumatic, PERRLA, EOMI Neck: Supple, JVD not distended Respiratory: Clear to auscultation bilaterally, Normal air movement Cardiovascular: Regular rate/rhythm, Normal S1 S2 Gastrointestinal: Normal bowel sounds, No tenderness Musculoskeletal: No tenderness Integumentary: No rashes Neurological: Normal speech, Normal tone, Normal affect Lymphatics: No axilla or inguinal lymphadenopathy - Studies Medications List Reviewed: Yes Assessment And Plan - Current Problems (Diagnosis) (1) Atrial fibrillation Current Visit: Yes Status: Acute Plan: Hold Xarelto for now just in case patient need coronary angiogram heparin drip instead continue to monitor on telemetery. (2) Dementia Current Visit: Yes Status: Acute (3) Troponin I above reference range Current Visit: Yes Status: Acute Plan: most likely secondary to UTI, as troponin are mild elevated and no significant delta, keep on heparin drip for now, echo shows normal EF talked to in details and will proceed with coronary angiogram in am NPO after midnight.
--- NOTE | 2024-05-02 18:10 | PN ---
Subjective: The patient lying in bed. by the bedside. Denies any headache, nausea, vomiting, chest pain, abdominal pain, constipation, or diarrhea. Objective: Vital Signs: Temperature 98, pulse 66, respirations 18, blood pressure 133/62. Lungs: Basal crackles. Heart: S1, S2. Regular. Abdomen: Soft, nontender. Bowel sounds present. Extremities: No edema. Laboratory Data: Reviewed. Urine cultures are growing mixed mayank. Assessment And Plan: Urosepsis. Consider getting evaluation by urologist as an outpatient. Continu e Rocephin for 5-7 days. Continue current medication. Can be switched to Levaquin if discharged or Cipro for a total of 7 days. Elevated troponin. We will follow the patient as needed. NF/MODL Voice ID: [id number] Report ID: [id number]
[2024-05-02 22:41] VITALS: BMI 27.8
[2024-05-03 07:08] LABS: MPV 7.3 fL (7.6-11.3); Platelets 145 thou/uL (152-406)
[2024-05-03 07:23] LABS: Anion Gap 6.4 mEq/L (5.0-15.0); Potassium 3.4 mEq/L (3.5-5.1)
[2024-05-03] MEDS: NA CHLORIDE 0.9% 500 ML ONE (09:31)
[2024-05-03] MEDS: KCL 20 MEQ/100 mL IVPB 20 MEQ/100 ML BAG IV SCH (10:00)
[2024-05-03] MEDS ORDERED: HEPARIN 10,000 UNIT/10 ML VIAL IV ONE (10:04)
[2024-05-03] MEDS ORDERED: LIDOCAINE 1% 20 ML MDV ONE (10:04)
[2024-05-03] MEDS ORDERED: MIDAZOLAM HCL 2 MG/2 ML INJ ONE (10:04)
[2024-05-03] MEDS ORDERED: CLOPIDOGREL 75 MG TABLET ONE (10:04)
[2024-05-03] MEDS ORDERED: HEPA 1000U/500MLS 2,000 UNIT/1,000 ML BAG IV ONE (10:04)
[2024-05-03] MEDS ORDERED: FENTANYL CITR 100 MCG/2 ML ONE (10:05)
[2024-05-03] MEDS ORDERED: ASPIRIN 325 MG TAB ONE (10:05)
[2024-05-03] MEDS ORDERED: TICAGRELOR 90 MG TABLET PO ONE (10:05)
[2024-05-03] MEDS ORDERED: HEPARIN 5000 UNIT/ML 1 ML VIAL ONE (10:05)
[2024-05-03] MEDS ORDERED: ATROPINE SULF 1 MG/10 ML SYR IV ONE (10:09)
--- NOTE | 2024-05-03 11:19 | P.PN ---
Subjective Date of Service: 05/03/24 Chief Complaint: Altered mental status Subjective: No new changes, No C/O voiced, Tolerating diet, Ambulating, Improving Review of Systems 10-point ROS is otherwise unremarkable Physical Examination - Vital Signs Temperature: 98.8 F Blood Pressure: 118/66 Pulse: 71 Respirations: 18 Pulse Ox (%): 95 - Physical Exam General: Alert, In no apparent distress HEENT: Atraumatic, PERRLA, EOMI Neck: Supple, JVD not distended Respiratory: Clear to auscultation bilaterally, Normal air movement Cardiovascular: Regular rate/rhythm, Normal S1 S2 Gastrointestinal: Normal bowel sounds, No tenderness Musculoskeletal: No tenderness Integumentary: No rashes Neurological: Normal speech, Normal tone, Normal affect Lymphatics: No axilla or inguinal lymphadenopathy - Studies Medications List Reviewed: Yes Assessment And Plan - Current Problems (Diagnosis) (1) Atrial fibrillation Current Visit: Yes Status: Acute Plan: Resume Xarelto. Patient is currently in sinus rhythm. (2) Dementia Current Visit: Yes Status: Acute (3) Troponin I above reference range Current Visit: Yes Status: Acute Plan: most likely secondary to UTI, Coronary angiogram done and it is normal, type 2 SC can stop heparin drip
[2024-05-03] MEDS: POTASSIUM 25 MEQ EFFERV TAB PO ONE (13:26)
[2024-05-03] MEDS ORDERED: HOME MED 1 EA UNK (Cyanocobalamin (Vitamin B-12) [Vitamin B12] 2,500 MCG Tab.Chew) PO SCH (14:08)
[2024-05-03] MEDS ORDERED: HOME MED 1 EA UNK (Donepezil Hcl [Donepezil Hcl] 10 MG Tablet) PO SCH (14:09)
--- NOTE | 2024-05-03 14:16 | P.PN ---
Subjective Date of Service: 05/03/24 Chief Complaint: Altered mental status No issues overnight. Patient remained confused He is n.p.o. for cardiac catheterization No agitation reported. Physical Examination - Vital Signs Temperature: 98.8 F Blood Pressure: 104/46 Pulse: 64 Respirations: 16 Pulse Ox (%): 95 - Studies Medications List Reviewed: Yes Assessment And Plan - Plan Physical examination General: Awake, confused, NAD, Neck: no elevated JVD Heart: Heart sounds 1 and 2 normal, regular rhythm, normal rate, no pedal edema Lungs: Clear to auscultation bilaterally, adequate breath sounds bilaterally, no rhonchi or crackles. Abdomen: Soft, nondistended, nontender, normal bowel sounds. Extremities: No tenderness, no deformity Skin: Normal skin turgor, no rash, no nodules or ulcers. Neuro: normal speech. No focal motor deficit. Psychiatry: No agitation. Plan: Acute metabolic encephalopathy Dementia Mental status is improving. History of recent flu. Flu screen is negative AM likely secondary to UTI. On IV Rocephin MRI of the brain is negative for acute CVA. Periodic reorientation. Elevated troponin History of atrial fibrillation AAA Cardiology is following. Troponin elevated but trended flat. Xarelto changed to heparin drip for Cardiac cath. Cardiac cath performed, no PCI. Heparin drip changed to home dose Xarelto. A-fib is rate controlled Patient is not on any rate control medication. echocardiogram is pending. UTI Likely causing AMS. Urine culture: Mixed growth Continue IV Rocephin. No fever today. Patient seems to be responding to IV Rocephin. Liver cirrhosis Signs of portal hypertension on the CT abdomen. Ammonia level is normal. Monitor LFTs. Outpatient follow-up. Impaired mobility Patient at baseline is able to ambulate with a walker under supervision. PT to evaluate. DVT prophylaxis: On heparin drip. Advanced directive: full code.
[2024-05-03] MEDS: MEMANTINE HCL 10 MG TABLET PO SCH (15:53)
[2024-05-03] MEDS: ESCITALOPRAM 20 MG TAB PO SCH (15:53)
[2024-05-03] MEDS: PYRIDOXINE (VIT B6) 50 MG TAB PO SCH (16:20)
[2024-05-03] MEDS: CYANOCOBALAMIN 1,000 MCG TAB PO SCH (16:20)
[2024-05-03 17:20] LABS: Absolute Basophils 0.1 K/uL (0-0.5); Absolute Eosinophils 0.1 K/uL (0-0.5); Absolute Lymphocytes (CBC) 1.4 K/uL (0.7-4.9); Absolute Monocytes 0.8 K/uL (0.1-1.3); Absolute Neutrophil 4.6 K/uL (1.8-8.0); Basophils % 0.7 % (0-1.3); Eosinophils % 1.5 % (0-4.4); Hematocrit 36.4 % (39.6-49.0); Lymphocytes % 20.3 % (15.3-44.8); MCH 34.5 pg (27.0-35.0); MCHC 35.7 g/dL (32.0-36.0); MCV 96.7 fL (80-100); MPV 6.8 fL (7.6-11.3); Monocytes % 11.6 % (3.3-12.3); Neutrophils % 65.9 % (41.7-73.7); Platelets 157 thou/uL (152-406); RBC Red Blood Cell Count 3.77 M/uL (4.33-5.43)
[2024-05-03] MEDS: BREXPIPRAZOLE 0.5 MG PO SCH (21:00)
[2024-05-03] MEDS: DONEPEZIL HCL 5 MG TAB PO SCH (21:33)
--- NOTE | 2024-05-03 22:04 | OP ---
Date of Procedure: 05/03/2024 Surgeon: Romulo Delgado Procedures Performed: 1.Left heart catheterization. 2.Selective coronary angiogram. Indication For Procedure: [id number] LA. Complications: None. Estimated Blood Loss: Less than 50 cc. Access: Right radial, closed by TR band. Sedation Time: 20 minutes with 1 of Versed and 25 of fentanyl. Description Of Procedure: After risks, benefits, and alternatives were explained to the patient, the patient agreed to proceed with the procedure and signed informed consent. The patient was brought [facility] to the poultry hatchery laborer, prepped and draped in a sterile fashion. Time-out was performed. Sedation was administered. Next, the right radial access was obtained using ultrasound-guided micropuncture techn [employer]. The [place] 4 catheter was advanced over a J-wire to the LV cavity. LVEDP was obtained. Pullba ck did not show any gradient. Same catheter was used for selective angiogram of the left and right c oronary systems. At the end of procedure, catheter was removed over a J-wire. Sheath was removed. TR band was applied. Hemostasis achieved. The patient was moved back to recovery in stable conditio n. Findings: 1.Left main: Normal. 2.LAD: Mild luminal irregularities. 3.Left circumflex: Mild luminal irregularities. 4.RCA: Mild luminal irregularities. 5.LVEDP: 12 mmHg. Assessment And Plan: Normal coronaries with normal filling pressure. Plan will be to continue medical management. CARLITO/PAULINA Voice ID: [id number] Report ID: [id number]
[2024-05-04 06:52] LABS: Platelets 155 thou/uL (152-406)
[2024-05-04] MEDS ORDERED: HOME MED 1 EA UNK (Potassium Chloride [Potassium Chloride] 20 MEQ Tab.Er.Prt) PO SCH (09:00)
[2024-05-04] MEDS ORDERED: PYRIDOXINE HCL 25 MG PO SCH (09:00)
[2024-05-04] MEDS: levoFLOXacin 750 MG TAB PO SCH (09:16)
[2024-05-04] MEDS: RIVAROXABAN 20 MG TABLET PO SCH (09:17)
[2024-05-04] MEDS: POTASSIUM CL SA 10 MEQ TAB PO SCH (09:17)
[2024-05-04 11:44] VITALS: O2SAT 91
--- NOTE | 2024-05-04 14:38 | P.DS ---
Admission Date: 04/30/24 Discharge Date: 05/04/24 Reason for Admission: Altered mental status Brief History of Present Illness: 73-year-old male with a history of dementia presents with confusion progressive over last 3 months. reports symptoms worsened 5 days prior to admission. He has been less alert. He still is able to answer some questions. Patient also has history of atrial fibrillation on Xarelto. Patient looked lethargic. Evaluation in the ER showed elevated troponin no significant EKG changes. Cardiology was consulted in the ER. Patient started on heparin drip for NSTEMI. His urine analysis also suggest a UTI. Patient was hospitalized for further management. Hospital Course: Acute metabolic encephalopathy Dementia History of recent flu. Flu screen this admission was negative AM likely secondary to UTI. Urine culture grew Staphylococcus capitis. Patient was initially on IV Rocephin, switched to oral Levaquin according to antibiotic sensitivity. MRI of the brain is negative for acute CVA. Elevated troponin History of atrial fibrillation AAA Patient evaluated by cardiology Troponin elevated but trended flat. Xarelto changed to heparin drip. Cardiac cath performed, no PCI. Heparin drip changed back to home dose Xarelto. A-fib is rate controlled, patient is not on any rate control medication. UTI Urine culture: Staphylococcus capitis Patient treated with IV Rocephin and transition to oral Levaquin Liver cirrhosis Signs of portal hypertension on the CT abdomen. Ammonia level checked was normal. Outpatient follow-up recommended. Impaired mobility Patient at baseline is able to ambulate with a walker under supervision. PT evaluated patient and noted patient has significantly decreased mobility. Patient should benefit from skilled rehab. Vital Signs/Physical Exam: Temp Pulse Resp BP Pulse Ox 98.5 F 69 20 113/73 95 05/04/24 12:00 05/04/24 12:00 05/04/24 12:00 05/04/24 12:00 05/04/24 12:00 Laboratory Data at Discharge: WBC 7.00 thou/uL (4.3-10.9) 05/03/24 17:00 Hgb 13.0 g/dL (13.6-17.9) L 05/03/24 17:00 Hct 36.4 % (39.6-49.0) L 05/03/24 17:00 Plt Count 155 thou/uL (152-406) 05/04/24 06:09 PT 15.2 SECONDS (9.4-12.5) H 05/01/24 17:18 INR 1.37 05/01/24 17:18 APTT 33.5 SECONDS (24.3-36.9) 05/04/24 06:09 Sodium 141 mEq/L (136-145) 05/03/24 06:30 Potassium Cancelled 05/03/24 19:00 BUN 12 mg/dL (7-18) 05/03/24 06:30 Creatinine 0.58 mg/dL (0.70-1.30) L 05/03/24 06:30 Glucose 113 mg/dL (74-106) H 05/03/24 06:30 Magnesium 1.9 mg/dL (1.6-2.4) 04/30/24 16:20 Total Bilirubin 2.6 mg/dL (0.2-1.0) H 05/01/24 06:28 AST 29 U/L (15-37) 05/01/24 06:28 ALT 17 U/L (16-61) 05/01/24 06:28 Alkaline Phosphatase 95 U/L (45-117) D 05/01/24 06:28 Home Medications: Ascorbic Acid [Vitamin C] 05/01/24 Brexpiprazole [Rexulti] 05/01/24 Cyanocobalamin (Vitamin B-12) [Vitamin B12] 05/01/24 Donepezil HCl 05/01/24 Escitalopram [Lexapro*] 10 mg PO DAILY 05/01/24 Folic Acid 2.5 05/01/24 Memantine HCl 10 mg PO 05/01/24 Pyridoxine HCl [Vitamin B-6] 05/01/24 Rivaroxaban [Xarelto] 20 mg PO 05/01/24 Acetaminophen [Tylenol*] 650 mg PO Q4HP PRN tab 05/04/24 levoFLOXacin [Levaquin*] 750 mg PO DAILY #7 tab 05/04/24 Followup: Delisa Brush MD [Primary Care Provider] -
--- NOTE | 2024-05-04 16:00 | EKG ---
Test Date: 2024-04-30 Test Time: 17:26:33 Tutorial Laboratory Supervisor: ROSY MEASUREMENT RESULTS: Intervals: Rate: 83 MO: QRSD: 90 QT: 402 QTc: 472 [place]: P: MO: QRS: 33 T: 65 INTERPRETIVE STATEMENTS: Undetermined rhythm Otherwise normal ECG No previous ECG available for comparison Electronically Signed On 05-04-24 15:53:37 PAPER SAMPLE CLERK by Romulo Delgado
[2024-05-04 16:12] VITALS: BP 111/60; TEMP 98.3
--- NOTE | 2024-05-14 08:46 | ECHO ---
HEIGHT: 5 ft 6 in WEIGHT: 172 lb 11.2 oz DATE OF STUDY: 05/01/[address]: Dorys Escamilla MD 2-DIMENSIONAL: YES M.MODE: YES DOPPLER: YES COLOR FLOW: YES TDS: NO PORTABLE: YES DEFINITY: NO BUBBLE STUDY: NO DIAGNOSIS: ELEVATED TROPONIN CARDIAC HISTORY: CATHERIZATION: NO SURGERY: NO PROSTHETIC VALVE: NO PACEMAKER: NO MEASUREMENTS (cm) DIASTOLIC (NORMALS) SYSTOLIC (NORMALS) IVSd 1.1 (0.6-1.2) LA Diam 5.1 (1.9-4.0) LVEF 55-60% LVIDd 4.9 (3.5-5.7) LVIDs 3.6 (2.0-3.5) %FS 26% LVPWd 1.1 (0.6-1.2) Ao Diam 2.9 (2.0-3.7) 2 DIMENSIONAL ASSESSMENT: RIGHT ATRIUM: NORMAL LEFT ATRIUM: SEVERELY DILATED RIGHT VENTRICLE: NORMAL LEFT VENTRICLE: NORMAL TRICUSPID VALVE: MILD TRICUSPID REGURGITATION MITRAL VALVE: MILD MITRAL REGURGITATION PULMONIC VALVE: TRACE PULMONARY REGURGITATION AORTIC VALVE: CALCIFIED PERICARDIAL EFFUSION: NONE AORTIC ROOT: NORMAL LEFT VENTRICULAR WALL MOTION: NORMAL. DOPPLER/COLOR FLOW: DIASTOLIC DYSFUNCTION. COMMENTS: 1. SEVERELY DILATED LEFT ATRIUM. 2. NORMAL LEFT VENTRICULAR FUNCTION. LEFT VENTRICULAR EJECTION FRACTION 55-60%. NORMAL WALL MOTION. 3. DIASTOLIC DYSFUNCTION. 4. MILD TRICUSPID REGURGITATION. 5. MILD TO MODERATE AORTIC STENOSIS. 6. MILD MITRAL REGURGITATION. TECHNOLOGIST: VIJI DIETRICH
== END 2024-05-04 16:30 | DRG 689 ==
LOC: ER 14:54 → 4TH 22:00
PROVIDERS: ADMIT Internal Medicine; ATTEND Internal Medicine
PROC: 4A023N7 Measurement of Cardiac Sampling and Pressure, Left Heart, Percutaneous Approach (ICD-10-PCS; principal; 2024-05-03)
PROC: B2111ZZ Fluoroscopy of Multiple Coronary Arteries using Low Osmolar Contrast (ICD-10-PCS; 2024-05-03)
DX: N39.0 Urinary tract infection, site not specified (principal); G93.41 Metabolic encephalopathy; I21.A1 Myocardial infarction type 2; K76.6 Portal hypertension; I48.91 Unspecified atrial fibrillation; K74.60 Unspecified cirrhosis of liver; D69.6 Thrombocytopenia, unspecified; D63.8 Anemia in other chronic diseases classified elsewhere; I71.40 Abdominal aortic aneurysm, without rupture, unspecified; F03.90 Unspecified dementia, unspecified severity, without behavioral disturbance, psychotic disturbance, mood disturbance, and anxiety; B95.7 Other staphylococcus as the cause of diseases classified elsewhere; R29.810 Facial weakness; Z79.01 Long term (current) use of anticoagulants; Z90.49 Acquired absence of other specified parts of digestive tract; Z79.899 Other long term (current) drug therapy
CPT/HCPCS: 36415; 70450; 70553; 71045; 71250; 71275; 72125; 74175; 74176; 76937; 80048; 80053; 80076; 81001; 82140; 83605; 83735; 84132; 84484; 85025; 85049; 85610; 85730; 87040; 87077; 87086; 87088; 87186; 87804; 87811; 93005; 93306; 93458; 97161; 97530; 99152; 99153; 99285; A9577; C1893; J0461; J0696; J1644; J2003; J2250; J3010; J7040; Q9966; Q9967